=== PATIENT | female | born 1975 | race Caucasian/White ===

== ENCOUNTER 2017-10-05 19:33 | Inpatient (IN) | payer OTHER ==
[2017-10-05 20:12] LABS: Absolute Lymphocytes (CBC) 0.9 K/uL (0.7-4.9); Absolute Monocytes 0.8 K/uL (0.1-1.3); Absolute Neutrophil 13.2 K/uL (1.8-8.0); Basophils % 0.3 % (0-1.3); Eosinophils % 0.1 % (0-4.4); Hematocrit 39.8 % (36.0-45.0); Lymphocytes % 6.3 % (15.3-44.8); MCH 23.4 pg (27.0-35.0); MCV 75.2 fL (80-100); MPV 7.8 fL (7.6-11.3); Monocytes % 5.5 % (3.3-12.3); RBC Red Blood Cell Count 5.29 M/uL (3.86-4.86)
[2017-10-05] MEDS ORDERED: ACETAMINOPHEN 500 MG TAB ONE (20:13)
[2017-10-05] MEDS ORDERED: NA CHLORIDE 0.9% 2,000 ML ONE (20:13)
[2017-10-05 20:20] LABS: Potassium 3.3 mEq/L (3.6-5.0)
--- NOTE | 2017-10-05 20:21 | RAD REPORT ---
EXAM DESCRIPTION: RAD - Chest Single View - 10/05/2017 8:08 pm CLINICAL HISTORY: Chest pain. COMPARISON: None. FINDINGS: Portable technique limits examination quality. The lungs are grossly clear. The heart is normal in size. No displaced fractures. IMPRESSION: No acute intrathoracic process suspected.
[2017-10-05 20:25] LABS: Protime INR 1.39
[2017-10-05 20:26] LABS: Albumin 3.1 g/dL (3.2-5.5); Bilirubin Direct 0.5 mg/dL (0-0.2); Bilirubin Total 1.3 mg/dL (0.3-1.2); Protein, Total 7.4 g/dL (6.0-8.3)
[2017-10-05 20:29] LABS: CKMB Creatine Kinase MB 0.9 ng/ml (0.3-4.0)
[2017-10-05 21:51] LABS: Urine Bacteria LOADED /HPF (<20); Urine Culture Reflex Order REFLEXED; Urine Mucus 1+ /HPF (NONE SEEN)
[2017-10-05 21:51] LABS: Urine Blood TRACE (NEG); Urine Glucose NEGATIVE (NEG); Urine Protein 2+ (NEG)
--- NOTE | 2017-10-05 21:53 | EDPHYS ---
Physician Documentation [facility] Name: Cristy Caceres Age: 42 yrs Sex: Female : 1975 Arrival Date: 10/05/2017 Time: 19:34 Bed 2 Private MD: ED Physician Magno Randle HPI: 10/05 19:50 This 42 yrs old Female presents to ER via EMS with complaints of Fever. cp 19:50 The patient reports fever, with an emergency department temperature of 103.2 degrees cp Fahrenheit. Onset: The symptoms/episode began/occurred 3 day(s) ago. 19:50 Associated signs and symptoms: Pertinent positives: cough, Pertinent negatives: cp abdominal pain, altered mental status, chest pain, diarrhea, vomiting. 19:50 Severity of symptoms: in the emergency department the symptoms are unchanged despite cp home interventions. 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 - Social history:: Smoking status: Patient/guardian denies using tobacco. ROS: 19:55 Constitutional: Positive for fever, poor PO intake. cp 19:55 Eyes: Negative for injury, pain, redness, and discharge. cp 19:55 ENT: Negative for injury, pain, and discharge, Neck: Negative for injury, pain, and cp swelling, Cardiovascular: Negative for chest pain, palpitations, and edema. 19:55 Respiratory: Positive for cough, Negative for shortness of breath, wheezing. cp 19:55 Abdomen/GI: Negative for abdominal pain, vomiting, diarrhea, constipation, black/tarry stool, rectal bleeding. 19:55 Back: Negative for injury or acute deformity. 19:55 : Negative for urinary symptoms, pelvic pain. 19:55 MS/extremity: Negative for injury or acute deformity, decreased range of motion. 19:55 Neuro: Negative for altered mental status, headache, loss of consciousness, syncope, near syncope. 19:55 All other systems are negative. Exam: 20:05 Constitutional: The patient appears in no acute distress, alert, non-diaphoretic, cp non-toxic, well developed, well nourished, appears ill 20:05 Head/Face: Normocephalic, atraumatic. cp 20:05 Eyes: Periorbital structures: appear normal, Pupils: equal, round, and reactive to light and accomodation, Extraocular movements: intact throughout, Conjunctiva: normal, no exudate, no injection, Sclera: no appreciated abnormality, Lids and lashes: appear normal, bilaterally. 20:05 ENT: External ear(s): are unremarkable, Ear canal(s): are normal, clear, TM's: bulging, is not appreciated, bilaterally, dullness, bilaterally, erythema, is not appreciated, bilaterally, Nose: is normal, Mouth: Lips: dry, Oral mucosa: dry, Posterior pharynx: Airway: no evidence of obstruction, patent, Tonsils: are normal in appearance, Uvula: midline, swelling, is not appreciated, erythema, that is mild, exudate, is not appreciated, Voice: is normal. 20:05 Neck: ROM/movement: is normal, is supple, without pain, no range of motions limitations, no meningismus, no nuchal rigidity, Lymph nodes: no appreciated lymphadenopathy. 20:05 Chest/axilla: Inspection: normal, Palpation: is normal, no crepitus, no tenderness. 20:05 Cardiovascular: Rate: tachycardic, Rhythm: regular, Edema: is not appreciated, JVD: is not appreciated. 20:05 Respiratory: the patient does not display signs of respiratory distress, Respirations: normal, no use of accessory muscles, no retractions, no splinting, no tachypnea, labored breathing, is not present, Breath sounds: decreased breath sounds, are not appreciated, stridor, is not appreciated, wheezing: is not appreciated. 20:05 Abdomen/GI: Inspection: obese Bowel sounds: active, all quadrants, Palpation: abdomen is soft and non-tender, in all quadrants. 20:05 Back: CVA tenderness, is absent, vertebral tenderness, is not appreciated. 20:05 Skin: cellulitis, is not appreciated, no rash present. 20:05 Neuro: Orientation: to person, place \T\ time. Mentation: lucid, able to follow commands, Cerebellar function: is grossly normal, Motor: moves all fours, general weakness w/o focal deficits, Sensation: no obvious gross deficits. Vital Signs: 19:38 BP 119 / 78; Pulse 132; Resp 22; Temp 103.2(O); Pulse Ox 100% on R/A; Weight 99.79 kg; tl2 Height 5 ft. 6 in. (167.64 cm); 20:28 BP 129 / 77; Pulse 115; Resp 20; Temp 101.6(O); Pulse Ox 94% on R/A; tl2 21:21 BP 101 / 77; Pulse 102; Resp 20; Temp 99.6(O); Pulse Ox 96% on R/A; tl2 22:29 BP 105 / 75; Pulse 90; Resp 18 S; Pulse Ox 96% on R/A; jd3 23:18 BP 95 / 62; Pulse 85; Resp 18 S; Temp 98.3(O); Pulse Ox 95% on R/A; jd3 19:38 Body Mass Index 35.51 (99.79 kg, 167.64 cm) tl2 MDM: 19:35 Patient medically screened. cp 21:50 Data reviewed: vital signs, nurses notes, lab test result(s), EKG, radiologic studies, cp plain films. 10/05 19:48 Order name: Urine Microscopic Only; Complete Time: 00:52 cp 10/05 19:48 Order name: Amylase, Serum; Complete Time: 20:56 cp 10/05 19:48 Order name: Basic Metabolic Panel; Complete Time: 20:56 cp 10/05 20:56 Interpretation: Normal except: NA 134; K 3.3; CO2 20; GLUC 152; GFR 81. cp 10/05 19:48 Order name: CBC with Diff; Complete Time: 20:56 cp 10/05 20:57 Interpretation: Normal except: WBC 15.0; RBC 5.29; MCV 75.2; MCH 23.4; MCHC 31.1; RDW cp 18.1; GABRIELE% 87.8; LYM% 6.3; NEUT A 13.2. 10/05 19:48 Order name: Ckmb; Complete Time: 20:56 cp 10/05 19:48 Order name: CPK; Complete Time: 20:56 cp 10/05 19:48 Order name: Lactate; Complete Time: 20:56 cp 10/05 19:48 Order name: LFT's; Complete Time: 20:56 cp 10/05 20:58 Interpretation: Normal except: SGOT 57; BILIT 1.3; BILID 0.5; ALB 3.1; GLOB 4.3; A/G cp 0.7. 10/05 19:48 Order name: Lipase; Complete Time: 20:56 cp 10/05 19:48 Order name: Procalcitonin; Complete Time: 21:34 cp 10/05 21:34 Interpretation: Abnormal: Procalcitonin 1.76. cp 10/05 19:48 Order name: Protime (+inr); Complete Time: 20:56 cp 10/05 21:04 Interpretation: Reviewed. cp 10/05 19:48 Order name: Ptt, Activated; Complete Time: 20:56 cp 10/05 21:06 Interpretation: Abnormal: PTT 23.8. cp 10/05 19:48 Order name: Urine Test (obtain specimen); Complete Time: 21:26 cp 10/05 19:48 Order name: Troponin (emerg Dept Use Only); Complete Time: 20:56 cp 10/05 19:48 Order name: Chest Single View XRAY; Complete Time: 20:56 cp 10/05 21:35 Interpretation: Report review. cp 10/05 19:48 Order name: Influenza Screen (a \T\ B); Complete Time: 20:56 cp 10/05 19:48 Order name: BNP B-Type Natriuretic Peptide; Complete Time: 20:56 EDMS 10/05 21:47 Order name: Urine Dipstick--Ancillary (enter results) rg2 10/05 21:47 Order name: Urine --Ancillary (enter results) rg2 10/05 21:48 Order name: Urine Dipstick-Ancillary; Complete Time: 00:52 EDMS 10/05 21:48 Order name: Urine --Ancillary; Complete Time: 00:52 EDMS 10/05 21:52 Order name: Urine Culture EDMS 10/05 22:33 Order name: Blood Culture EDMS 10/05 19:48 Order name: Accucheck; Complete Time: 20:13 cp 10/05 19:48 Order name: Cardiac monitoring; Complete Time: 20:00 cp 10/05 19:48 Order name: EKG - Nurse/Tech; Complete Time: 19:50 cp 04/05 19:48 Order name: IV Saline Lock - Large Bore; Complete Time: 19:50 cp 04/05 19:48 Order name: Labs collected and sent; Complete Time: 19:50 cp 0405 19:48 Order name: O2 Per Protocol; Complete Time: 19:50 cp 04/05 19:48 Order name: O2 Sat Monitoring; Complete Time: 19:50 cp 04/05 19:48 Order name: Urine Dipstick-Ancillary (obtain specimen); Complete Time: 21:26 cp 04/05 21:10 Order name: Straight Cath - Urine; Complete Time: 21:26 jd3 Administered Medications: 20:01 Drug: Tylenol 1000 mg Route: PO; jd3 21:09 Follow up: Response: Temperature is decreased jd3 20:02 Drug: NS 0.9% (30 ml/kg) 30 ml/kg Route: IV; Rate: bolus; Site: left antecubital; tl2 23:32 Follow up: Response: No adverse reaction; IV Status: Infusion continued upon admission jd3 21:04 CANCELLED (Physician Discretion): Ibuprofen 800 mg PO once cp 21:51 Drug: Rocephin - (cefTRIAXone) 1 grams Route: IVPB; Infused Over: 30 mins; Site: left jd3 antecubital; 23:32 Follow up: Response: No adverse reaction; IV Status: Completed infusion jd3 21:51 Drug: Ibuprofen 800 mg Route: PO; jd3 23:31 Follow up: Response: Temperature is decreased; Pain is decreased jd3 Point of Care Testing: Blood Glucose: 20:15 Blood Glucose: 140 mg/dL; tl2 Ranges: Critical Glucose Levels:Adult <50 mg/dl or >400 mg/dl <40 mg/dl or >180 mg/dl Disposition: 10/05/17 21:53 Hospitalization ordered by Lui Cintron for Observation. Preliminary diagnosis are Urinary tract infection, site not specified, Other specified sepsis. - Bed requested for Telemetry/MedSurg (Inpatient). - Status is Observation. jd3 - Condition is Stable. - Problem is new. - Symptoms have improved. UTI on Admission? Yes Addendum: 10/10/2017 08:32 Co-signature as Attending Physician, Magno Randle MD. g s Signatures: Dispatcher [employer] EDMS Alaina Woodward RN RN Felzi Ricardo PA PA cp Bonita Chahal RN RN tl2 Magno Randle MD MD gs Davies, Jonathon, RN RN jd3 Corrections: (The following items were deleted from the chart) 10/05 19:49 19:48 BNP+C.LAB.BRZ ordered. EDMS EDMS 21:04 21:03 Ibuprofen 800 mg PO once ordered. cp cp
--- NOTE | 2017-10-05 21:53 | ER ---
Nurse's Notes [facility] Name: Cristy Caceres Age: 42 yrs Sex: Female : 1975 Arrival Date: 10/05/2017 Time: 19:34 Bed 2 Private MD: Diagnosis: Urinary tract infection, site not specified;Other specified sepsis Presentation: 10/05 19:35 Presenting complaint: EMS states: Pt has been c/o of feeling ill x 3 days, was tl2 diagnosed with bronchitis 2 weeks ago. Pt reports cough, fever and generalized body aches. Transition of care: patient was not received from another setting of care. Onset of symptoms was October 02, 2017. Care prior to arrival: None. 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 - Social history:: Smoking status: Patient/guardian denies using tobacco. Screenin:40 Abuse screen: Denies threats or abuse. Nutritional screening: No deficits noted. tl2 Tuberculosis screening: No symptoms or risk factors identified. Fall Risk IV access (20 points). Assessment: 19:35 General: Appears uncomfortable, Behavior is calm, cooperative, appropriate for age, jd3 Reports fever for feeling ill for. Pain: Complains of pain in generalized Quality of pain is described as aching. Neuro: Level of Consciousness is awake, alert, obeys commands, Oriented to person, place, time, situation. Cardiovascular: Heart tones S1 S2 present Capillary refill < 3 seconds Patient's skin is warm and dry. Rhythm is sinus tachycardia. Respiratory: Airway is patent Respiratory effort is even, unlabored, Respiratory pattern is regular, symmetrical, Breath sounds are clear bilaterally. GI: Abdomen is round Bowel sounds present X 4 quads. Abd is soft and non tender X 4 quads. Patient currently denies nausea, vomiting. : No signs and/or symptoms were reported regarding the genitourinary system. EENT: No signs and/or symptoms were reported regarding the EENT system. Derm: Skin is intact, Skin is dry, Skin is normal, Skin temperature is warm. Musculoskeletal: Circulation, motion, and sensation intact. Range of motion: intact in all extremities. 20:30 Reassessment: Patient appears in no apparent distress at this time. No changes from tl2 previously documented assessment. Patient and/or family updated on plan of care and expected duration. Pain level reassessed. Patient is alert, oriented x 3, equal unlabored respirations, skin warm/dry/pink. 21:30 Reassessment: Patient appears in no apparent distress at this time. Patient and/or jd3 family updated on plan of care and expected duration. Pain level reassessed. Patient is alert, oriented x 3, equal unlabored respirations, skin warm/dry/pink. Patient states feeling better. 22:30 Reassessment: Patient appears in no apparent distress at this time. Patient and/or jd3 family updated on plan of care and expected duration. Pain level reassessed. Patient is alert, oriented x 3, equal unlabored respirations, skin warm/dry/pink. 23:21 Reassessment: Patient appears in no apparent distress at this time. Patient and/or jd3 family updated on plan of care and expected duration. Pain level reassessed. Patient is alert, oriented x 3, equal unlabored respirations, skin warm/dry/pink. Vital Signs: 19:38 BP 119 / 78; Pulse 132; Resp 22; Temp 103.2(O); Pulse Ox 100% on R/A; Weight 99.79 kg; tl2 Height 5 ft. 6 in. (167.64 cm); 20:28 BP 129 / 77; Pulse 115; Resp 20; Temp 101.6(O); Pulse Ox 94% on R/A; tl2 21:21 BP 101 / 77; Pulse 102; Resp 20; Temp 99.6(O); Pulse Ox 96% on R/A; tl2 22:29 BP 105 / 75; Pulse 90; Resp 18 S; Pulse Ox 96% on R/A; jd3 23:18 BP 95 / 62; Pulse 85; Resp 18 S; Temp 98.3(O); Pulse Ox 95% on R/A; jd3 19:38 Body Mass Index 35.51 (99.79 kg, 167.64 cm) tl2 ED Course: 19:34 Patient arrived in ED. jd3 19:34 Billy Ye RN is Primary Nurse. jd3 19:35 Feliz Rueda PA is PHCP. cp 19:35 Magno Randle MD is Attending Physician. cp 19:37 Triage completed. tl2 19:38 Arm band placed on right wrist. tl2 19:40 Patient has correct armband on for positive identification. Bed in low position. Side tl2 rails up X2. 19:45 Inserted saline lock: 18 gauge in left antecubital area, using aseptic technique. Blood jd3 collected. placed by [employer]. 20:07 X-ray completed. Portable x-ray completed in exam room. Patient tolerated procedure kc2 well. 20:09 Chest Single View XRAY In Process Unspecified. EDMS 21:28 Straight cath inserted, using sterile technique, 16 Fr. Specimen obtained. jd3 21:52 Lui Cintron MD is Hospitalizing Provider. cp 23:20 No provider procedures requiring assistance completed. Patient admitted, IV remains in jd3 place. Administered Medications: 20:01 Drug: Tylenol 1000 mg Route: PO; jd3 21:09 Follow up: Response: Temperature is decreased jd3 20:02 Drug: NS 0.9% (30 ml/kg) 30 ml/kg Route: IV; Rate: bolus; Site: left antecubital; tl2 23:32 Follow up: Response: No adverse reaction; IV Status: Infusion continued upon admission jd3 21:04 CANCELLED (Physician Discretion): Ibuprofen 800 mg PO once cp 21:51 Drug: Rocephin - (cefTRIAXone) 1 grams Route: IVPB; Infused Over: 30 mins; Site: left jd3 antecubital; 23:32 Follow up: Response: No adverse reaction; IV Status: Completed infusion jd3 21:51 Drug: Ibuprofen 800 mg Route: PO; jd3 23:31 Follow up: Response: Temperature is decreased; Pain is decreased jd3 Point of Care Testing: Blood Glucose: 20:15 Blood Glucose: 140 mg/dL; tl2 Ranges: Outcome: 21:53 Decision to Hospitalize by Provider. cp 23:22 Condition: stable jd3 23:22 Instructed on the need for admit, Demonstrated understanding of instructions. 23:30 Admitted to Med/surg accompanied by tech, via stretcher, room 208, with chart, Report jd3 called to Fatou HODGE 23:39 Patient left the ED. jd3 Signatures: Dispatcher [employer] EDMS Feliz Rueda PA PA cp Carr, Kelsie kc2 Bonita Chahal RN RN tl2 Billy Ye RN RN jd3 Corrections: (The following items were deleted from the chart) 19:45 19:35 Cardiovascular: Heart tones S1 S2 present Capillary refill < 3 seconds Patient's jd3 skin is warm and dry. jd3 22:15 21:15 Reassessment: Patient appears in no apparent distress at this time. Patient jd3 and/or family updated on plan of care and expected duration. Pain level reassessed. Patient is alert, oriented x 3, equal unlabored respirations, skin warm/dry/pink. jd3 22:30 22:15 Reassessment: Patient appears in no apparent distress at this time. Patient jd3 and/or family updated on plan of care and expected duration. Pain level reassessed. Patient is alert, oriented x 3, equal unlabored respirations, skin warm/dry/pink. jd3
[2017-10-05] MEDS ORDERED: CEFTRIAXONE/SWI 1gm 1 GM/10 ML SYR ONE (22:04)
[2017-10-05] MEDS ORDERED: IBUPROFEN 400 MG TAB ONE (22:04)
[2017-10-05] MEDS ORDERED: ONDANSETRON 4 MG/2 ML VIAL IV PRN (23:27)
--- NOTE | 2017-10-05 23:39 | P.HP ---
Certification for Inpatient Patient admitted to: Inpatient With expected LOS: >2 Midnights Practitioner: I am a practitioner with admitting privileges, knowledge of patient current condition, hospital course, and medical plan of care. Services: Services provided to patient in accordance with Admission requirements found in Title 42 Section 412.3 of the Code of Federal Regulations Patient History Date of Service: 10/05/17 Reason for admission: sepsis History of Present Illness: Ms Caceres is a 42 years old woman with history of chronic back pain, S/P back surgery (no records of specific surgical procedure), neurogenic bladder requiring self-catheterization, came to ED complaining of severe weakness and fever since 3-4 days ago. She started to be lethargic, then she had fever and generalized malaise. She denied abdominal pain, nausea or vomiting, diarrhea or burning urination. She has not had cough or SOB. In ED the patient was febrile, 103.2 F, lab work remarkable for leukocytosis 15K, elevated procalcitonin with normal lactate. UA was significantly abnormal consistent with UTI. Allergies No Known Allergies Allergy (Verified 03/07/16 22:12) Home Medications: Dextroamphetamine/Amphetamine [Adderall Xr 30 mg Capsule] 30 mg PO DAILY Pregabalin [Lyrica*] 75 mg PO BID 03/07/16 Levofloxacin [Levaquin] 500 mg PO DAILY #14 tablet 03/10/16 Prednisone [Prednisone*] 40 mg PO [id number] #20 tab 03/10/16 - Past Medical/Surgical History -: RSD -: neurogenic bladder -: TUBAL LLIGATION -: BACK SX -: BREAST AUGMENTATION - Family History Family History: Reviewed- Non-Contributory - Social History Smoking Status: Never smoker Alcohol use: Yes CD- Drugs: No Caffeine use: Yes Place of Residence: Home Review of Systems 10-point ROS is otherwise unremarkable Physical Examination - Physical Exam General: In no apparent distress, Other (obtunded easy to arouse) HEENT: Atraumatic, PERRLA, Mucous membr. moist/pink, EOMI, Sclerae nonicteric Neck: Supple, 2+ carotid pulse no bruit, No LAD, Without JVD or thyroid abnormality Respiratory: Clear to auscultation bilaterally, Normal air movement Cardiovascular: Regular rate/rhythm, Normal S1 S2 Gastrointestinal: Normal bowel sounds, No tenderness Musculoskeletal: No tenderness Integumentary: No rashes Neurological: Normal speech, Normal strength at 5/5 x4 extr, Normal tone, Normal affect Lymphatics: No axilla or inguinal lymphadenopathy - Studies Laboratory Data (last 24 hrs) 10/05/17 20:04: PT 16.4 H, INR 1.39, APTT 23.8 L 10/05/17 19:45: WBC 15.0 H, Hgb 12.4, Hct 39.8, Plt Count 293 10/05/17 19:45: B-Natriuretic Peptide 89 10/05/17 19:45: Sodium 134 L, Potassium 3.3 L, BUN 9, Creatinine 0.77, Glucose 152 H, Total Bilirubin 1.3 H, AST 57 H, ALT 46, Alkaline Phosphatase 111, Amylase 34, Lipase 25 Microbiology Data (last 24 hrs): 10/05/17 20:04 Nasopharnyx Influenza Type A Antigen Screen - Final 10/05/17 20:04 Nasopharnyx Influenza Type B Antigen Screen - Final Assessment and Plan - Problems (Diagnosis) (1) Sepsis Current Visit: Yes Status: Acute Qualifiers: Sepsis type: sepsis due to unspecified organism Qualified Code(s): A41.9 - Sepsis, unspecified organism (2) UTI (urinary tract infection) Current Visit: Yes Status: Acute Qualifiers: Urinary tract infection type: catheter-associated UTI Indwelling urinary catheter type: unspecified Encounter type: initial encounter Qualified Code( s): T83.511A - Infection and inflammatory reaction due to indwelling urethral catheter, initial encounter; N39.0 - Urinary tract infection, site not specified ; N39.0 - Urinary tract infection, site not specified (3) Chronic back pain Current Visit: Yes Status: Acute Qualifiers: Back pain location: low back pain Back pain laterality: midline Sciatica presence: unspecified whether sciatica present Qualified Code(s): M54.5 - Low back pain; G89.29 - Other chronic pain; G89.29 - Other chronic pain (4) Neurogenic bladder Current Visit: Yes Status: Acute - Plan Ms Caceres will be admitted to the hospital due to sepsis secondary to UTI. She is hemodynamically stable. Will order blood cultures, urine culture, renal US, empiric treatment with IV Levaquin, IV fluids and symptomatic medication for nausea and fever. - Advance Directives Does patient have a Living Will: No Does patient have a Durable POA for Healthcare: No
[2017-10-06] MEDS: NA CHLORIDE 0.9% 1,000 ML IV SCH ×3 (00:16→19:27)
[2017-10-06] MEDS: Levofloxacin 750mg IV 750 MG/150 ML BAG IV SCH (00:26)
[2017-10-06 05:55] LABS: ALT/SGPT 37 IU/L (10-60); AST/SGOT 38 IU/L (10-42); Albumin 2.5 g/dL (3.2-5.5); Alkaline Phosphatase 87 IU/L (42-121); BUN Blood Urea Nitrogen 10 mg/dL (6-20); Bicarbonate 25 mEq/L (21-31); Bilirubin Total 0.8 mg/dL (0.3-1.2); Glomerular Filtration Rate > 90 mL/min (=/>90); Glucose Level 100 mg/dL (65-120); Potassium 3.6 mEq/L (3.6-5.0); Protein, Total 6.3 g/dL (6.0-8.3); Sodium Level 135 mEq/L (135-145)
[2017-10-06] MEDS ORDERED: POTASSIUM 25 MEQ EFFERV TAB PO ONE (06:37)
[2017-10-06] MEDS: AMPHETAMINE PO SCH ×2 (09:00→21:00)
[2017-10-06] MEDS: DEXTROAMPHETAMINE PO SCH ×2 (09:00→21:00)
[2017-10-06] MEDS: CODEINE 30MG/APAP 300MG TAB PO SCH ×2 (09:00→21:02)
--- NOTE | 2017-10-06 09:18 | EKG ---
Test Date: 2017-10-05 Test Time: 19:41:10 Directory Clerk: TERESA MEASUREMENT RESULTS: Intervals: Rate: 124 NV: 154 QRSD: 66 QT: 352 QTc: 505 Happy: P: 26 NV: 154 QRS: 77 T: 59 INTERPRETIVE STATEMENTS: Sinus tachycardia with premature atrial complexes Anteroseptal infarct, age undetermined Abnormal ECG No previous ECG available for comparison Electronically Signed On 10-06-17 09:17:59 CDT by Hayes Fernandez
--- NOTE | 2017-10-06 09:22 | RAD REPORT ---
EXAM DESCRIPTION: US - Renal Ultrasound-Complete - 10/06/2017 7:49 am CLINICAL HISTORY: Urosepsis. COMPARISON: None. FINDINGS: Both kidneys are normal in size, shape and echotexture. The right kidney measures 11.2 x 5.3 x 5.2 cm. No hydronephrosis, focal mass or perinephric fluid. The left kidney measures 10.0 x 5.8 x 4.9 cm. No hydronephrosis, focal mass or perinephric fluid. IMPRESSION: Unremarkable renal sonogram.
[2017-10-06] MEDS: PREGABALIN 50 MG CAP PO SCH ×2 (09:29→21:03)
[2017-10-06] MEDS: ENOXAPARIN 40 MG/0.4 ML SQ SCH (09:30)
--- NOTE | 2017-10-06 14:49 | PN ---
Date of Progress Note: 10/06/2017 History: The patient seen and examined. Chart reviewed, and case discussed with RN. The patient is a 42-year-old female who comes in with urinary tract infection with sepsis. The patient states that she is feeling better, however, still kind of lethargic. Does report some flank pain. Review of Systems: Negative except as above. Medications: Reviewed. Physical Examination: Vital Signs: Temperature 97.1, heart rate 70, blood pressure 101/64, respirations 17, O2 saturation 97% on room air. General: Awake, alert, oriented x3, in some mild distress. Obese female. BMI 37.5. CV: S1, S2. No murmurs. Regular rate and rhythm. Peripheral pulses present. Respiratory: Clear to auscultation bilaterally. No wheezing. No stridor. No use of accessory muscles. Gastrointestinal: Abdomen is soft, nontender, nondistended. The patient does have some left flank pain. Extremities: No clubbing, cyanosis, edema. Neurologic: Nonfocal. Laboratory Data: Urine culture showing 4+ gram-negative rods. Sodium 135, potassium 3.6, chloride 104, CO2 25, BUN 10, creatinine 0.7, glucose 100, calcium 7.8. Lactate was 15.4, albumin 2.5, procalcitonin 1.76. Assessment: A 42-year-old female with Sepsis secondary to urinary tract infection. No further fevers. We will continue antibiotics. Follow up with cultures. 1. Generalized weakness secondary to above. 2. pyelonephritis secondary to gram-negative rods. We will continue IV antibiotics. The patient does have flank pain. Right renal ultrasound was unremarkable and followup on ID and sensitivity. 3. Chronic back pain, midline, without sciatica. 4. Neurogenic bladder. The patient does do self-catheterization. Plan: We will continue antibiotics. Follow up on cultures. Ambulate. SA/MODL Voice ID: [id number] Report ID: [id number] MTDD
[2017-10-06] MEDS: ACETAMINOPHEN 500 MG TAB PO PRN (16:47)
[2017-10-07] MEDS: Levofloxacin 750mg IV 750 MG/150 ML BAG IV SCH ×2 (00:04→22:42)
[2017-10-07] MEDS: NA CHLORIDE 0.9% 1,000 ML IV SCH ×3 (00:04→20:16)
[2017-10-07] MEDS: ACETAMINOPHEN 500 MG TAB PO PRN (03:32)
[2017-10-07 05:14] LABS: Absolute Lymphocytes (CBC) 1.6 K/uL (0.7-4.9); Absolute Monocytes 0.8 K/uL (0.1-1.3); Absolute Neutrophil 3.1 K/uL (1.8-8.0); Basophils % 0.8 % (0-1.3); Eosinophils % 2.1 % (0-4.4); Hematocrit 32.5 % (36.0-45.0); Lymphocytes % 27.7 % (15.3-44.8); MCH 23.7 pg (27.0-35.0); MCV 75.3 fL (80-100); MPV 7.9 fL (7.6-11.3); Monocytes % 14.3 % (3.3-12.3); RBC Red Blood Cell Count 4.31 M/uL (3.86-4.86)
[2017-10-07 05:54] LABS: BUN Blood Urea Nitrogen 10 mg/dL (6-20); Bicarbonate 26 mEq/L (21-31); Glomerular Filtration Rate > 90 mL/min (=/>90); Glucose Level 97 mg/dL (65-120); Magnesium 1.9 mg/dL (1.8-2.5); Potassium 3.5 mEq/L (3.6-5.0); Sodium Level 138 mEq/L (135-145)
[2017-10-07] MEDS: DEXTROAMPHETAMINE PO SCH ×2 (09:00→20:19)
[2017-10-07] MEDS: AMPHETAMINE PO SCH ×2 (09:00→20:19)
[2017-10-07] MEDS ORDERED: POTASSIUM 25 MEQ EFFERV TAB PO ONE (09:00)
[2017-10-07] MEDS: PREGABALIN 50 MG CAP PO SCH ×2 (10:09→20:19)
[2017-10-07] MEDS: ENOXAPARIN 40 MG/0.4 ML SQ SCH (10:10)
[2017-10-07] MEDS: CODEINE 30MG/APAP 300MG TAB PO SCH ×2 (10:10→20:18)
--- NOTE | 2017-10-07 15:19 | PN ---
Date of Progress Note: 10/07/2017 Subjective: The patient is seen and examined, chart reviewed, and case discussed with RN. The patient states that she feels better, however, still sleepy. Pain is significantly improved. Review of Systems: Negative except as above. Medications: Reviewed. Physical Examination: Vital Signs: Temperature 98.2, heart rate 80, blood pressure 128/77, respirations 18, O2 96% on room air. General: Awake, alert, oriented x3, in some mild distress. Somewhat ill- appearing female. BMI 37.5. CVS: S1, S2. No murmurs. Regular rate and rhythm. Peripheral pulses present. Respiratory: Moving air well bilaterally. No wheezing. Abdomen: Abdomen is soft, nontender, nondistended. Positive bowel sounds and slight flank pain on the left. Extremities: No clubbing, cyanosis, edema. Neurologic: Nonfocal. Laboratory Data: Sodium 138, potassium 3.5, chloride 107, CO2 26, BUN 10, creatinine 0.64, glucose 97, calcium 8, magnesium 1.9. WBC 5.7, H and H 10.2, 32.5, platelets 271, neutrophils 55%. Urine culture shows Escherichia coli. Essentially pansensitive. Blood cultures; no growth to date. Assessment And Plan: A 42-year-old female with: 1. Sepsis secondary to pyelonephritis, improved. The patient is afebrile. White count normalized secondary to urinary tract infection with Escherichia coli. 2. Pyelonephritis secondary to Escherichia coli. We will continue IV antibiotics, sensitivities noted, improving. 3. Generalized weakness secondary to above. We will ambulate the patient today. 4. Chronic back pain, midline without sciatica. 5. Neurogenic bladder. Patient is self cath'ed. Plan: Ambulate. Recheck blood count in a.m. Likely discharge in next 24-48 hours if continues to improve. Continue IV fluids. /TATIANA Voice ID: [id number] Report ID: [id number] LOLA
[2017-10-08] MEDS: NA CHLORIDE 0.9% 1,000 ML IV SCH (01:27)
[2017-10-08 05:15] LABS: Absolute Lymphocytes (CBC) 1.9 K/uL (0.7-4.9); Absolute Monocytes 0.8 K/uL (0.1-1.3); Absolute Neutrophil 2.4 K/uL (1.8-8.0); Basophils % 0.8 % (0-1.3); Eosinophils % 1.8 % (0-4.4); Hematocrit 32.1 % (36.0-45.0); Lymphocytes % 35.9 % (15.3-44.8); MCH 23.9 pg (27.0-35.0); MCV 74.9 fL (80-100); MPV 7.5 fL (7.6-11.3); Monocytes % 14.9 % (3.3-12.3); RBC Red Blood Cell Count 4.29 M/uL (3.86-4.86)
[2017-10-08 05:27] LABS: BUN Blood Urea Nitrogen 6 mg/dL (6-20); Bicarbonate 26 mEq/L (21-31); Glomerular Filtration Rate > 90 mL/min (=/>90); Glucose Level 98 mg/dL (65-120); Potassium 3.7 mEq/L (3.6-5.0); Sodium Level 140 mEq/L (135-145)
[2017-10-08] MEDS ORDERED: POTASSIUM CL SA 10 MEQ TAB PO ONE (06:36)
[2017-10-08] MEDS: ENOXAPARIN 40 MG/0.4 ML SQ SCH (09:00)
[2017-10-08] MEDS: CODEINE 30MG/APAP 300MG TAB PO SCH (09:00)
[2017-10-08] MEDS: PREGABALIN 50 MG CAP PO SCH (09:00)
[2017-10-08] MEDS: AMPHETAMINE PO SCH (09:00)
[2017-10-08] MEDS: DEXTROAMPHETAMINE PO SCH (09:00)
--- NOTE | 2017-10-09 04:04 | DS ---
Date of Discharge: 10/08/2017 Admitting Diagnoses: 1.Sepsis. 2.Pyelonephritis. 3.Chronic back pain. 4.Neurogenic bladder. Discharge Diagnoses: 1.Sepsis, resolved. 2.Pyelonephritis secondary to Escherichia coli. 3.Generalized weakness, improved. 4.Chronic back pain, midline without sciatica. 5.Neurogenic bladder. Hospital Course: The patient is a 42-year-old female who comes into the hospital for UTI symptoms. Her white count was elevated. She was found to have pyelonephritis. She was started on IV antibioti cs and her urine culture showed E. coli, which was essentially pansensitive. Renal ultrasound was do ne, which showed unremarkable renal sonogram. The patient's sepsis improved. Her white count normal ized. Her procalcitonin trended down. The patient was able to ambulate, was doing well, had no furt her pain and her sepsis had resolved. The patient was then discharged home in a stable condition. Activity: As tolerated. Medications: As per medication reconciliation list. Diet: Calorie restricted diet. Followup: Follow up with primary care physician 2 days. Return to ER for worsening condition. Physical Examination: General: Awake, alert, oriented, no acute distress. CV: S1, S2. No murmurs. Respiratory: Moving air well bilaterally. Abdomen: Soft, nontender, nondistended. Positive bowel sounds. Extremities: No clubbing, cyanosis, or edema. Neurologic: Nonfocal. Time Spent: Total time spent discharging the patient was 35 minutes. PEG Voice ID: [id number] Report ID: [id number]
== END 2017-10-08 11:10 | disposition home or self-care (01) | DRG 698 ==
LOC: ER 19:33 → ERHOLD 22:07 → 2ND 23:20
PROVIDERS: ADMIT Internal Medicine; ATTEND Family Medicine
DX: T83.511A Infection and inflammatory reaction due to indwelling urethral catheter, initial encounter (principal); A41.9 Sepsis, unspecified organism; N10 Acute pyelonephritis; G90.50 Complex regional pain syndrome I, unspecified; B96.20 Unspecified Escherichia coli [E. coli] as the cause of diseases classified elsewhere; M54.9 Dorsalgia, unspecified; N31.9 Neuromuscular dysfunction of bladder, unspecified
CPT/HCPCS: 36415; 51702; 71045; 76770; 80048; 80053; 80076; 81003; 81015; 81025; 82150; 82550; 82553; 82962; 83605; 83690; 83735; 83880; 84145; 84484; 85025; 85610; 85730; 87040; 87077; 87086; 87088; 87186; 87804; 93005; 96365; 96366; 99285; J0696; J1650; J7030

== ENCOUNTER 2019-09-19 13:33 | Emergency (ER) | payer OTHER ==
[2019-09-19 15:01] LABS: Urine Blood 1+ (NEG); Urine Glucose NEGATIVE (NEG); Urine Protein 1+ (NEG); Urine pH 8.5 (5.0-7.0)
[2019-09-19 15:01] LABS: Urine Bacteria <20 /HPF (<20); Urine Mucus 2+ /HPF (NONE SEEN)
--- NOTE | 2019-09-19 15:54 | RAD REPORT ---
EXAM DESCRIPTION: CT - Stone Protocol - 09/19/2019 3:40 pm CLINICAL HISTORY: Flank pain. FLANK PAIN COMPARISON: No comparisons TECHNIQUE: Axial images were obtained without oral or IV contrast. Lack of contrast limits solid org an and vascular assessment. The [id number] spans the entirety of the system partially obscuring uppermost abdomen and lung bases. Coronal reformatted images were obtained and reviewed. All CT scans are performed using dose optimization technique as appropriate and may include automated exposure control or mA/KV adjustment according to patient size. FINDINGS: The lower lung welch are clear. Imaged portions of the liver and spleen show no suspicious findings on non-contrast imaging. The panc reas and adrenal glands are normal. No pathologic lymphadenopathy in the abdomen or pelvis. A 2 mm calculus is present in the proximal left ureter resulting in mild left hydronephrosis. No margareth tional stone or hydronephrosis seen. No bowel obstruction, free air, free fluid or abscess. Normal appendix noted. No significant bony abnormality. IMPRESSION: 2 mm calculus proximal left ureter resulting in mild left hydronephrosis.
--- NOTE | 2019-09-19 16:15 | EDPHYS ---
Physician Documentation [facility] Name: Cristy Caceres Age: 43 yrs Sex: Female : 1975 Arrival Date: 09/19/2019 Time: 13:48 Bed 17 Private MD: Adan Smith E ED Physician Rolando Singh HPI: 09/18 16:55 This 43 yrs old Female presents to ER via Ambulatory with complaints of Flank kb Pain. 16:55 The patient complains of pain in the left flank. The pain does not radiate. Modifying kb factors: The symptoms are alleviated by nothing. the symptoms are aggravated by palpation/percussion. The patient has not recently seen a physician. 16:55 Onset: The symptoms/episode began/occurred 2 day(s) ago. Associated signs and symptoms: kb Pertinent positives: fever, Pertinent negatives: diarrhea, dizziness, dysuria, urinary frequency, headache, hematuria, nausea, pain radiating to the lower extremities, vomiting. Severity of pain: At its worst the pain was moderate in the emergency department the pain is unchanged. The patient has not experienced similar symptoms in the past. Pt reports left flank pain. No urinary symptoms, but pt has cauda equina syndrome so has "no feeling down there". 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 - Social history:: Smoking status: Patient/guardian denies using. ROS: 16:53 Constitutional: Negative for fever, chills, and weight loss, ENT: Negative for injury, kb pain, and discharge, Neck: Negative for injury, pain, and swelling, Cardiovascular: Negative for chest pain, palpitations, and edema, Respiratory: Negative for shortness of breath, cough, wheezing, and pleuritic chest pain, Abdomen/GI: Negative for abdominal pain, nausea, vomiting, diarrhea, and constipation, MS/Extremity: Negative for injury and deformity, Skin: Negative for injury, rash, and discoloration, Neuro: Negative for headache, weakness, numbness, tingling, and seizure. 16:53 : Positive for flank pain. Exam: 16:52 Constitutional: This is a well developed, well nourished patient who is awake, alert, kb and in no acute distress. Head/Face: Normocephalic, atraumatic. Neck: Trachea midline, no thyromegaly or masses palpated, and no cervical lymphadenopathy. Supple, full range of motion without nuchal rigidity, or vertebral point tenderness. No Meningismus. Chest/axilla: Normal chest wall appearance and motion. Nontender with no deformity. No lesions are appreciated. Cardiovascular: Regular rate and rhythm with a normal S1 and S2. No gallops, murmurs, or rubs. Normal PMI, no JVD. No pulse deficits. Respiratory: Lungs have equal breath sounds bilaterally, clear to auscultation and percussion. No rales, rhonchi or wheezes noted. No increased work of breathing, no retractions or nasal flaring. Abdomen/GI: Soft, non-tender, with normal bowel sounds. No distension or tympany. No guarding or rebound. No evidence of tenderness throughout. Skin: Warm, dry with normal turgor. Normal color with no rashes, no lesions, and no evidence of cellulitis. MS/ Extremity: Pulses equal, no cyanosis. Neurovascular intact. Full, normal range of motion. Neuro: Awake and alert, GCS 15, oriented to person, place, time, and situation. Cranial nerves II-XII grossly intact. Motor strength 5/5 in all extremities. Sensory grossly intact. Cerebellar exam normal. Normal gait. 16:52 Back: pain, that is moderate, of the left flank, ROM is normal, normal spinal alignment noted, CVA tenderness, that is moderate, is noted on the left. Vital Signs: 13:59 BP 151 / 85; Pulse 113; Resp 20; Temp 100.1; Pulse Ox 98% ; Pain 10/10; ll1 16:00 BP 134 / 78; Pulse 98; Resp 18; Temp 99.4; Pulse Ox 95% on R/A; wh MDM: 14:02 Patient medically screened. kb 15:13 Data reviewed: vital signs, nurses notes. Data interpreted: Pulse oximetry: on room air kb is 98 %. Interpretation: normal. Counseling: I had a detailed discussion with the patient and/or guardian regarding: the historical points, exam findings, and any diagnostic results supporting the discharge/admit diagnosis, lab results, the need for outpatient follow up, a family practitioner, to return to the emergency department if symptoms worsen or persist or if there are any questions or concerns that arise at home. 09/18 14:43 Order name: Urine Microscopic Only; Complete Time: 15:13 dh3 09/18 14:43 Order name: Urine Culture [facility] 09/18 14:54 Order name: Urine Dipstick--Ancillary (enter results); Complete Time: 15:13 em1 09/18 14:54 Order name: Urine --Ancillary (enter results); Complete Time: 15:13 em1 09/18 15:13 Order name: CT Stone Protocol; Complete Time: 16:04 kb 09/18 14:00 Order name: Urine Dipstick-Ancillary (obtain specimen); Complete Time: 14:39 wh 09/18 14:00 Order name: Urine Test (obtain specimen); Complete Time: 14:38 wh Administered Medications: 16:13 CANCELLED (Physician Discretion): Ibuprofen 600 mg PO once kb 16:14 CANCELLED (Physician Discretion): TORadol - Ketorolac 15 mg IVP once kb 16:34 Drug: Macrobid 100 mg Route: PO; 16:41 Follow up: Response: No adverse reaction 16:34 Drug: Flomax 0.4 mg Route: PO; 16:41 Follow up: Response: No adverse reaction 16:34 Drug: Tylenol 1000 mg Route: PO; 16:41 Follow up: Response: No adverse reaction Disposition: 18:35 Co-signature as Attending Physician, Rolando Singh MD Signature for administrative ps1 purposes. Did not see or evaluate patient. . Disposition: 09/19/19 16:14 Discharged to Home. Impression: Calculus of ureter. - Condition is Stable. - Discharge Instructions: Kidney Stones, [id number]. - Prescriptions for Zofran 4 mg Oral Tablet - take 1 tablet by ORAL route every 12 hours As needed; 20 tablet. Macrobid 100 mg Oral Capsule - take 1 capsule by ORAL route every 12 hours for 10 days; 20 capsule. Flomax 0.4 mg Oral Capsule, Sust. Release 24 hr - take 1 capsule by ORAL route once daily 1/2 hour following the same meal each day; 10 capsule. Diclofenac Sodium 75 mg Oral Tablet, Delayed Release (E.C.) - take 1 tablet by ORAL route 2 times per day As needed; 30 tablet. - Medication Reconciliation Form, Thank You Letter, Antibiotic Education, Prescription Opioid Use form. - Follow up: Emergency Department; When: As needed; Reason: Worsening of condition. Follow up: Private Physician; When: 2 - 3 days; Reason: Recheck today's complaints, Continuance of care, Re-evaluation by your physician. Signatures: Dispatcher [employer] EDLaya Hand, JONES MCDONALD-Jeny Thomas Phillip, MD MD ps1 Corrections: (The following items were deleted from the chart) 16:13 16:13 Ibuprofen 600 mg PO once ordered. kb kb 16:14 16:13 TORadol - Ketorolac 15 mg IVP once ordered. kb kb 17:17 16:14 09/19/2019 16:14 Discharged to Home. Impression: Calculus of ureter. Condition is wh Stable. Forms are Medication Reconciliation Form, Thank You Letter, Antibiotic Education, Prescription Opioid Use. Follow up: Emergency Department; When: As needed; Reason: Worsening of condition. Follow up: Private Physician; When: 2 - 3 days; Reason: Recheck today's complaints, Continuance of care, Re-evaluation by your physician. kb
--- NOTE | 2019-09-19 16:15 | ER ---
Nurse's Notes [facility] Name: Cristy Caceres Age: 43 yrs Sex: Female : 1975 Arrival Date: 09/19/2019 Time: 13:48 Bed 17 Private MD: Adan Smith E Diagnosis: Calculus of ureter Presentation: 09/18 13:59 Chief complaint: Patient states: Severe left flank pain for 2 days. + fever. Sent MD. ll1 Coronavirus screen: The patient has NOT traveled to a country currently being monitored by the [facility] within the last 14 days. Ebola Screen: Patient denies travel to an Ebola-affected area in the 21 days before illness onset. Initial Sepsis Screen: Does the patient meet any 2 criteria? Systolic BP < 90 mmHg. Risk Assessment: Do you want to hurt yourself or someone else? Patient reports no desire to harm self or others. 13:59 Method Of Arrival: Ambulatory 1 13:59 Acuity: TWIN 3 1 14:10 Onset of symptoms was September 19, 2019. 14:10 Initial Sepsis Screen: Does the patient have a suspected source of infection? Yes: Dysuria/Frequency/Urgency/UTI. 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 - Social history:: Smoking status: Patient/guardian denies using. Screenin:15 Abuse screen: Denies threats or abuse. Denies injuries from another. Nutritional screening: No deficits noted. Tuberculosis screening: No symptoms or risk factors identified. Fall Risk None identified. Assessment: 14:15 General: Appears in no apparent distress. Behavior is calm, cooperative, appropriate wh for age. Pain: Complains of pain in back Pain does not radiate. Pain currently is 3 out of 10 on a pain scale. Is intermittent. Neuro: Level of Consciousness is awake, alert, obeys commands, Oriented to person, place, time, situation, Appropriate for age. Cardiovascular: Heart tones S1 S2. Respiratory: Airway is patent Respiratory effort is even, unlabored, Respiratory pattern is regular, symmetrical, Breath sounds are clear bilaterally. GI: Abdomen is flat, non-distended, Abd is soft and non tender X 4 quads. : Reports incontinence, Hx of Cauda Equina. EENT: No signs and/or symptoms were reported regarding the EENT system. Derm: Skin is intact, is healthy with good turgor, Skin is pink, warm \T\ dry. normal. Musculoskeletal: Circulation, motion, and sensation intact. 15:25 Reassessment: Patient appears in no apparent distress at this time. No changes from previously documented assessment. Patient and/or family updated on plan of care and expected duration. Pain level reassessed. Patient is alert, oriented x 3, equal unlabored respirations, skin warm/dry/pink. 16:37 Reassessment: Patient appears in no apparent distress at this time. No changes from previously documented assessment. Patient and/or family updated on plan of care and expected duration. Pain level reassessed. Patient is alert, oriented x 3, equal unlabored respirations, skin warm/dry/pink. 16:45 Reassessment: Pt with low grade fever and chills just waiting for ride home. Vital Signs: 13:59 BP 151 / 85; Pulse 113; Resp 20; Temp 100.1; Pulse Ox 98% ; Pain 10/10; ll1 16:00 BP 134 / 78; Pulse 98; Resp 18; Temp 99.4; Pulse Ox 95% on R/A; ED Course: 13:48 Patient arrived in ED. mr 13:48 Adan Smith MD is Private Physician. mr 13:56 Jeff Abarca, AYESHA is Primary Nurse. em 14:00 Triage completed. ll1 14:01 Laya Mcneill FNP-C [facility]. kb 14:01 Rolando Singh MD is Attending Physician. kb 14:01 Arm band placed on Patient placed in an exam room. ll1 14:10 Patient has correct armband on for positive identification. Placed in gown. Bed in low wh position. Call light in reach. Side rails up X 1. Pulse ox on. NIBP on. 14:43 Straight cath inserted, using sterile technique, Returned cloudy urine. Patient dh3 tolerated well. 15Fr , returned approximately 80mL. 15:41 CT Stone Protocol In Process Unspecified. EDMS 16:38 No provider procedures requiring assistance completed. Patient did not have IV access wh during this emergency room visit. Administered Medications: 16:13 CANCELLED (Physician Discretion): Ibuprofen 600 mg PO once 16:14 CANCELLED (Physician Discretion): TORadol - Ketorolac 15 mg IVP once 16:34 Drug: Macrobid 100 mg Route: PO; 16:41 Follow up: Response: No adverse reaction 16:34 Drug: Flomax 0.4 mg Route: PO; 16:41 Follow up: Response: No adverse reaction 16:34 Drug: Tylenol 1000 mg Route: PO; 16:41 Follow up: Response: No adverse reaction Outcome: 16:14 Discharge ordered by MD. 16:38 Discharged to home ambulatory. 16:38 Condition: stable 16:38 Discharge instructions given to patient, Instructed on discharge instructions, follow up and referral plans. medication usage, POC Demonstrated understanding of instructions, follow-up care, medications, POC Prescriptions given X 4. 17:17 Patient left the ED. Signatures: Dispatcher [employer] EDLaya Hand, CRIME INVESTIGATOR SPECIAL AGENT-C CRIME INVESTIGATOR SPECIAL AGENT-Eliza Antony Edgar, RN RN Mary Guzman 3 Jeny Escobar Zeeshan Woodward RN RN ll1 Corrections: (The following items were deleted from the chart) 16:44 16:00 BP 134 / 78; Pulse 98bpm; Resp 18bpm; Pulse Ox 95% RA; [facility]
[2019-09-19] MEDS ORDERED: ACETAMINOPHEN 500 MG TAB ONE (16:32)
[2019-09-19] MEDS ORDERED: NITROFURAN MACRO 100 MG CAP PO ONE (16:32)
[2019-09-19] MEDS ORDERED: TAMSULOSIN 0.4 MG SR CAP ONE (16:32)
== END 2019-09-19 17:17 | disposition home or self-care (01) ==
LOC: ER 13:33
DX: N20.1 Calculus of ureter (principal)
CPT/HCPCS: 51702; 74176; 76377; 81003; 81015; 81025; 87086; 87088; 99284

== ENCOUNTER 2020-10-25 02:31 | Emergency (ER) | payer OTHER ==
[2020-10-25] MEDS ORDERED: MORPHINE 4 MG/ML SYR ONE (04:54)
--- NOTE | 2020-10-25 06:37 | EDPHYS ---
Physician Documentation [facility] Name: Cristy Caceres Age: 45 yrs Sex: Female : 1975 Arrival Date: 10/25/2020 Time: 02:34 Bed 8 Private MD: ED Physician Bladimir Mustafa HPI: 10/25 04:48 This 45 yrs old Female presents to ER via EMS with complaints of Back Pain. mh7 04:48 The patient presents with pain and an injury. The symptoms are located in the lumbar mh7 area. 04:48 Onset: The symptoms/episode began/occurred today. The pain does not radiate. mh7 04:49 Associated signs and symptoms: Pertinent negatives: abdominal pain, chest pain, mh7 constipation, dysuria, fever, headache, hematuria, incontinence, nausea, numbness, tingling, urinary retention, vomiting, weakness. The problem was sustained during a fall, while walking. Modifying factors: The patient symptoms are alleviated by nothing, the patient symptoms are aggravated by movement. Severity of symptoms: At their worst the symptoms were moderate, earlier today, in the emergency department the symptoms are unchanged. 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 - Social history:: Smoking status: Patient denies any tobacco usage or history of. ROS: 04:49 Constitutional: Negative for fever, chills, and weight loss, Eyes: Negative for injury, mh7 pain, redness, and discharge, ENT: Negative for injury, pain, and discharge, Neck: Negative for injury, pain, and swelling, Cardiovascular: Negative for chest pain, palpitations, and edema, Respiratory: Negative for shortness of breath, cough, wheezing, and pleuritic chest pain, Abdomen/GI: Negative for abdominal pain, nausea, vomiting, diarrhea, and constipation, : Negative for injury, bleeding, discharge, and swelling, MS/Extremity: Negative for injury and deformity, Skin: Negative for injury, rash, and discoloration, Neuro: Negative for headache, weakness, numbness, tingling, and seizure, Psych: Negative for depression, anxiety, suicide ideation, homicidal ideation, and hallucinations, Allergy/Immunology: Negative for hives, rash, and allergies, Endocrine: Negative for neck swelling, polydipsia, polyuria, polyphagia, and marked weight changes, Hematologic/Lymphatic: Negative for swollen nodes, abnormal bleeding, and unusual bruising. Exam: 04:49 Constitutional: This is a well developed, well nourished patient who is awake, alert, mh7 and in no acute distress. Head/Face: Normocephalic, atraumatic. Eyes: Pupils equal round and reactive to light, extra-ocular motions intact. Lids and lashes normal. Conjunctiva and sclera are non-icteric and not injected. Cornea within normal limits. Periorbital areas with no swelling, redness, or edema. Neck: Trachea midline, no thyromegaly or masses palpated, and no cervical lymphadenopathy. Supple, full range of motion without nuchal rigidity, or vertebral point tenderness. No Meningismus. Chest/axilla: Normal chest wall appearance and motion. Nontender with no deformity. No lesions are appreciated. Cardiovascular: Regular rate and rhythm with a normal S1 and S2. No gallops, murmurs, or rubs. Normal PMI, no JVD. No pulse deficits. Respiratory: Lungs have equal breath sounds bilaterally, clear to auscultation and percussion. No rales, rhonchi or wheezes noted. No increased work of breathing, no retractions or nasal flaring. Abdomen/GI: Soft, non-tender, with normal bowel sounds. No distension or tympany. No guarding or rebound. No evidence of tenderness throughout. 04:49 Skin: Warm, dry with normal turgor. Normal color with no rashes, no lesions, and no evidence of cellulitis. MS/ Extremity: Pulses equal, no cyanosis. Neurovascular intact. Full, normal range of motion. Neuro: Awake and alert, GCS 15, oriented to person, place, time, and situation. Cranial nerves II-XII grossly intact. Motor strength 5/5 in all extremities. Sensory grossly intact. Cerebellar exam normal. Normal gait. Psych: Awake, alert, with orientation to person, place and time. Behavior, mood, and affect are within normal limits. 04:49 Back: pain, that is moderate, of the lumbar area, ROM is painful, with all movement, normal spinal alignment noted, CVA tenderness, is absent, vertebral tenderness, is appreciated at lumbar area, muscle spasm, is not present, Straight leg raises: of both lower extremities does not illicit pain. Vital Signs: 02:35 BP 179 / 109; Pulse 90; Resp 17; Temp 98; Pulse Ox 100% on R/A; mg2 06:30 BP 162 / 95; Pulse 88; Resp 18; Pulse Ox 99% on R/A; MDM: 06:33 Differential diagnosis: chronic back pain, Fracture Osteoarthritis vertebral fracture, mh7 Back Contusion. Data reviewed: vital signs, nurses notes, old medical records, radiologic studies, CT scan. Data interpreted: Pulse oximetry: on room air is 100 %. Interpretation: normal. Counseling: I had a detailed discussion with the patient and/or guardian regarding: the historical points, exam findings, and any diagnostic results supporting the discharge/admit diagnosis, the presence of at least one elevated blood pressure reading (>120/80) during this emergency department visit, radiology results, the need for outpatient follow up, to return to the emergency department if symptoms worsen or persist or if there are any questions or concerns that arise at home. Response to treatment: the patient's symptoms have markedly improved after treatment. 06:36 Patient medically screened. [facility] 10/25 04:35 Order name: CT Lumbar Spine Wo Con 7 Administered Medications: 04:38 Drug: morphine 4 mg Route: IM; Site: left deltoid; mg2 06:59 Follow up: Response: No adverse reaction; Pain is decreased; RASS: Alert and Calm (0) Disposition: 10/25/20 06:36 Discharged to Home. Impression: Fall, Mechanical, Lower Back Contusion. - Condition is Stable. - Discharge Instructions: Contusion, Mazw-cw-Igbl, Back Pain, Adult, Jeci-pj-Hxbf, Fall Prevention in the Home, Kwih-hg-Myye. - Prescriptions for ketorolac 10 mg Oral tablet - take 1 tablet by ORAL route every 6 hours As needed not to exceed 40 mg in 24hrs; 12 tablet. - Work release form, Medication Reconciliation Form, Thank You Letter, Antibiotic Education, Prescription Opioid Use form. - Follow up: Private Physician; When: 1 - 2 days; Reason: Worsening of condition, Recheck today's complaints, Continuance of care, Re-evaluation by your physician. - Problem is new. - Symptoms have improved. Signatures: Dispatcher [employer] EDMS Jeny Escobar RN RN Blaze Villarreal RN RN [facility] Bladimir Mustafa MD MD mh7 Corrections: (The following items were deleted from the chart) 06:59 06:36 10/25/2020 06:36 Discharged to Home. Impression: Fall, Mechanical; Lower Back wh Contusion. Condition is Stable. Forms are Medication Reconciliation Form, Thank You Letter, Antibiotic Education, Prescription Opioid Use. Follow up: Private Physician; When: 1 - 2 days; Reason: Worsening of condition, Recheck today's complaints, Continuance of care, Re-evaluation by your physician. Problem is new. Symptoms have improved. mh7
--- NOTE | 2020-10-25 06:37 | ER ---
Nurse's Notes [facility] [place] [place] Name: Cristy Caceres Age: 45 yrs Sex: Female : 1975 Arrival Date: 10/25/2020 Time: 02:34 Bed 8 Private MD: Diagnosis: Fall, Mechanical;Lower Back Contusion Presentation: 10/25 02:35 Chief complaint: EMS states: she slipped and fell on floor, landed on her butt tonight. mg2 Coronavirus screen: Client denies travel out of the [place] in the last 14 days. At this time, the client does not indicate any symptoms associated with coronavirus-19. Ebola Screen: No symptoms or risks identified at this time. Initial Sepsis Screen: Does the patient meet any 2 criteria? No. Patient's initial sepsis screen is negative. Does the patient have a suspected source of infection? No. Patient's initial sepsis screen is negative. Risk Assessment: Do you want to hurt yourself or someone else? Patient reports no desire to harm self or others. Onset of symptoms was October 25, 2020. 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 - Social history:: Smoking status: Patient denies any tobacco usage or history of. Screenin:21 Abuse screen: Denies threats or abuse. Denies injuries from another. Nutritional mg2 screening: No deficits noted. Tuberculosis screening: No symptoms or risk factors identified. Fall Risk Fall in past 12 months (25 points). Assessment: 02:36 General: Behavior is crying. mg2 04:22 General: Appears in no apparent distress. comfortable. Pain: Complains of pain in back. mg2 Neuro: Level of Consciousness is awake, alert, obeys commands, Oriented to person, place, time, situation. Cardiovascular: Capillary refill < 3 seconds Patient's skin is warm and dry. Respiratory: Airway is patent Respiratory effort is even, unlabored, Respiratory pattern is regular, symmetrical. GI: No signs and/or symptoms were reported involving the gastrointestinal system. : No signs and/or symptoms were reported regarding the genitourinary system. EENT: No signs and/or symptoms were reported regarding the EENT system. Derm: Skin is intact, is healthy with good turgor, Skin is pink, warm \T\ dry. normal. Musculoskeletal: Circulation, motion, and sensation intact. Capillary refill < 3 seconds, Reports pain in back. 06:30 Reassessment: Patient appears in no apparent distress at this time. Patient and/or family updated on plan of care and expected duration. Pain level reassessed. Patient is alert, oriented x 3, equal unlabored respirations, skin warm/dry/pink. Vital Signs: 02:35 BP 179 / 109; Pulse 90; Resp 17; Temp 98; Pulse Ox 100% on R/A; mg2 06:30 BP 162 / 95; Pulse 88; Resp 18; Pulse Ox 99% on R/A; ED Course: 02:34 Patient arrived in ED. ag3 02:36 Triage completed. mg2 02:37 Arm band placed on. mg2 04:21 Blaze Villarreal RN is Primary Nurse. mg2 04:22 Bladimir Mustafa MD is Attending Physician. mh7 04:22 Patient has correct armband on for positive identification. Pulse ox on. NIBP on. Door mg2 closed. Warm blanket given. 04:22 No provider procedures requiring assistance completed. Patient did not have IV access mg2 during this emergency room visit. 05:16 CT Lumbar Spine Wo Con In Process Unspecified. EDMS Administered Medications: 04:38 Drug: morphine 4 mg Route: IM; Site: left deltoid; mg2 06:59 Follow up: Response: No adverse reaction; Pain is decreased; RASS: Alert and Calm (0) Outcome: 06:36 Discharge ordered by . mh7 06:58 Discharged to home via wheelchair. 06:58 Condition: stable 06:58 Discharge instructions given to patient, Instructed on discharge instructions, follow up and referral plans. medication usage, POC Demonstrated understanding of instructions, follow-up care, medications, POC Prescriptions given X 1. 06:59 Patient left the ED. Signatures: Dispatcher [employer] EDMS Jeny Escobar RN RN Blaze Villarreal RN RN [facility] Sammi Adams ag3 Mustafa, Bladimir, MD MD mh7
[2020-10-25 07:15] VITALS: TEMP 98
[2020-10-25 07:19] VITALS: BP 162/95; O2SAT 99
--- NOTE | 2020-10-25 11:45 | RAD REPORT ---
EXAM DESCRIPTION: CTSpine Lumbar Wo Con10/25/2020 6:14 am CLINICAL HISTORY: The patient is 45 years old and is Female; trauma TECHNIQUE: Axial computed tomography images of the lumbar spine without intravenous contrast. Sagi ttal and coronal reformatted images were created and reviewed. This CT exam was performed using one or more of the following dose reduction techniques: automated exposure control, adjustment of the mA and/or kV according to patient size, and/or use of iterative reconstruction technique. COMPARISON: No relevant prior studies available. FINDINGS: Vertebrae: Laminectomy at L5-S1. No acute fracture. Discs/spinal canal/neural foramina: Disc space narrowing with degenerative endplate changes from L4 to S1. Disc bulge at L4-5 with narrowing of the thecal sac. Disc bulge at L5-S1 with narrowing of the thecal sac. Soft tissues: Unremarkable. IMPRESSION: No acute fracture or subluxation. Laminectomy L5-S1. Disc space narrowing with degenerat adela endplate changes from L4 to S1. Electronically signed by: Boyd Vilchis MD 10/25/2020 6:03 AM CDT Due to temporary technical issues with the PACS/Fluency reporting system, reports are being signed by the in house radiologists without review as a courtesy to insure prompt reporting. The interpreting radiologist is fully responsible for the content of the report
== END 2020-10-25 06:59 | disposition home or self-care (01) ==
LOC: ER 02:31
DX: S30.0XXA Contusion of lower back and pelvis, initial encounter (principal); W01.198A Fall on same level from slipping, tripping and stumbling with subsequent striking against other object, initial encounter
CPT/HCPCS: 72131; 96372; 99284

== ENCOUNTER 2023-01-08 09:32 | Emergency (ER) | payer OTHER ==
--- OUTSIDE RECORDS SUMMARY | 2023-01-08 09:35 | XMS REPORT | Continuity of Care Document ---
:1975 Author Organization [facility] t Address [address] [place] [address] Care Team Providers Name Role Phone ROBBIE BARRAGAN Primary Care Physician Unavailable RADIOLOGY Attending Clinician Unavailable Radiology Attending Clinician Unavailable RAMESH CHAUDHARY Attending Clinician Unavailable RAMESH CHAUDHARY Attending Clinician Unavailable Migel Graham Attending Clinician MIGEL AYALA Attending Clinician Unavailable Doctor Unassigned, [place] Attending Clinician Unavailable Symone Kessler MD Attending Clinician SYMONE KESSLER Attending Clinician Unavailable DAMIAN FREEDMAN Admitting Clinician Unavailable SYMONE KESSLER Admitting Clinician Unavailable Payers Payer Name Policy Type Policy Number Effective Date Expiration Date Lolita fraser [facility] [id number] 2021 ADVANTAGE CHOICE 00:00:[address] [facility] [place] [id number] 2020 PLUS 00:00:00 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 00:00: [address] Allergies, Adverse Reactions, Alerts Allergy Allergy Status Severity Reaction(s) Onset Inactive Treating Comm ents Source Name Type Date Date Clinician NO KNOWN Drug Active Univers ALLERGIE Class ity of S [place] [facility] Social History Social Habit Start Date Stop Date Quantity Comments Source Exposure to Not sure [facility] SARS-CoV-2 (event) Medica l Branch Alcohol intake 2021-06-29 2021-06-29 0 /d [facility] 00:00:00 00:00:00 Medical Branch Sex Assigned At [birth year] [facility] 00:00:00 00:00:00 Medical Branch Smoking Status Start Date Stop Date Source Never smoked tobacco [facility] Medications Ordered Filled Start Stop Current Ordering Indication Dosage Frequency Signature Comments Components Source Medication Medication Date Date Medication? Clinician (SIG) Name Name docusate Yes [id number] 250mg Take 1 U nivers sodium 250 4-26 capsule by ity of mg capsule 00:00: mouth [place] 00 daily as Medical needed for Branch Constipati on. polyethylen Yes [id number] 1{packe Take 1 Univers e glycol 4-26 t} Packet by ity of 3350 00:00: mouth [place] (MIRALAX) 00 every 24 Medica l 17 gram (twenty-fo Branch powder ur) hours as needed for Constipati on. traMADoL 50 Yes [id number] 50mg Take 1 Univ ers mg tablet 4-26 tablet by ity o f 00:00: mouth [place] 00 every 6 Medical (six) Branch hours as needed for Pain (scale 4-6). Indication s: acute pain docusate Yes [id number] 250mg Take 1 U nivers sodium 250 4-26 capsule by ity of mg capsule 00:00: mouth once [place] 00 daily as Medical needed for Branch Constipati on. polyethylen Yes [id number] 1{packe Take 1 Univers e glycol 4-26 t} Packet by ity of 3350 00:00: mouth [place] (MIRALAX) 00 every 24 Medica l 17 gram (twenty-fo Branch powder ur) hours as needed for Constipati on. traMADoL 50 Yes [id number] 50mg Take 1 Univ ers mg tablet 4-26 tablet by ity o f 00:00: mouth [place] 00 every 6 Medical (six) Branch hours as needed for Pain (scale 4-6). Indication s: acute pain docusate Yes [id number] 250mg Take 1 U nivers sodium 250 4-26 capsule by ity of mg capsule 00:00: mouth once [place] 00 daily as Medical needed for Branch Constipati on. polyethylen Yes [id number] 1{packe Take 1 Univers e glycol 4-26 t} Packet by ity of 3350 00:00: mouth [place] (MIRALAX) 00 every 24 Medica l 17 gram (twenty-fo Branch powder ur) hours as needed for Constipati on. traMADoL 50 Yes 4647 50mg Take 1 Univ ers mg tablet 4-26 tablet by ity o f 00:00: mouth [place] 00 every 6 Medical (six) Branch hours as needed for Pain (scale 4-6). Indication s: acute pain docusate Yes [id number] 250mg Take 1 U nivers sodium 250 4-26 capsule by ity of mg capsule 00:00: mouth once [place] 00 daily as Medical needed for Branch Constipati on. polyethylen Yes [id number] 1{packe Take 1 Univers e glycol 4-26 t} Packet by ity of 3350 00:00: mouth [place] (MIRALAX) 00 every 24 Medica l 17 gram (twenty-fo Branch powder ur) hours as needed for Constipati on. traMADoL 50 Yes [id number] 50mg Take 1 Univ ers mg tablet 4-26 tablet by ity o f 00:00: mouth [place] 00 every 6 Medical (six) Branch hours as needed for Pain (scale 4-6). Indication s: acute pain pregabalin 2016-0 Yes 100mg Take 100 [place] (LYRICA) 4-19 mg by ity of 100 mg 10:05: mouth 2 [place] capsule 17 (two) Medical times Branch daily. pregabalin 2017-0 Yes 100mg Take 100 [place] (LYRICA) 4-19 mg by ity of 100 mg 10:05: mouth 2 [place] capsule 17 (two) Medical times Branch daily. pregabalin 2017-0 Yes 100mg Take 100 [place] (LYRICA) 4-19 mg by ity of 100 mg 10:05: mouth 2 [place] capsule 17 (two) Medical times [place] daily. pregabalin 2017- Yes 100mg Take 100 [place] (LYRICA) 4-19 mg by ity of 100 mg 10:05: mouth 2 [place] capsule 17 (two) Medical times [place] daily. triamcinolo 2017- Yes Apply to Un [place] ne 4-19 area(s) 2 ity of acetonide 00:00: (two) [place] 0.1 % cream 00 times Medical daily. Branch triamcinolo 2016- Yes Apply to Un [place] ne 4-19 area(s) 2 ity of acetonide 00:00: (two) [place] 0.1 % cream 00 times Medical daily. Branch triamcinolo 2016- Yes Apply to Un [place] ne 4-19 area(s) 2 ity of acetonide 00:00: (two) [place] 0.1 % cream 00 times Medical daily. Branch triamcinolo Yes Apply to Un [place] ne 4-19 area(s) 2 ity of acetonide 00:00: (two) [place] 0.1 % cream 00 times Medical daily. Branch traMADOL 50 Yes 1{tbl} Take 1 Un [place] mg tablet 1-11 tablet by ity o f 00:00: mouth as [place] 00 needed. Medical Branch traMADOL 50 Yes 1{tbl} Take 1 [place] mg tablet 1-11 tablet by ity o f 00:00: mouth as [place] 00 needed. Medical Branch traMADOL 50 Yes 1{tbl} Take 1 [place] mg tablet 1-11 tablet by ity o f 00:00: mouth as [place] 00 needed. Medical Branch traMADOL 50 Yes 1{tbl} Take 1 [place] mg tablet 1-11 tablet by ity o f 00:00: mouth as [place] 00 needed. Medical Branch ADDERALL XR 2015-07 Yes 1{capsu Take 1 U nivers 30 mg 24 hr 1-15 le} capsule by it y of capsule 00:00: mouth [place] 00 daily. Medical Branch ADDERALL XR 2015-07 Yes 1{capsu Take 1 U nivers 30 mg 24 hr 1-15 le} capsule by it y of capsule 00:00: mouth [place] 00 daily. Medical Branch ADDERALL XR 2015-07 Yes 1{capsu Take 1 U nivers 30 mg 24 hr 1-15 le} capsule by it y of capsule 00:00: mouth 00 daily. Medical Branch ADDERALL XR 2016- Yes 1{capsu Take 1 U nivers 30 mg 24 hr 1-15 le} capsule by it y of capsule 00:00: mouth 00 daily. [facility] Vital Signs Vital Name Observation Time Observation Value Comments Source Systolic blood 2021-06-29 17:41:00 167 mm[Hg] Univer sity [facility] Diastolic blood 2021-06-29 17:41:00 105 mm[Hg] [facility] Heart rate 2021-06-29 17:41:00 92 /min [facility] Body height 2021-06-29 17:40:00 167.6 cm [facility] Body weight 2021-06-29 17:40:00 133.312 kg [facility] BMI 2021-06-29 17:40:00 47.44 kg/m2 [facility] Procedures This patient has no known procedures. Encounters Start End Encounter Admission Attending Care Care Encounter Source Date/Time Date/Time Type Type Clinicians Facility Department ID 2022-05-13 2022-05-13 Outpatient R RADIOLOGY [facility] [id number] Univers 16:49:55 23:59:00 ity of [place] [facility] 2022-05-13 2022-05-13 [facility] Radiology [facility] [id number] Univers 16:49:55 23:59:00 [facility] [id number] ity of [place] [id number] [facility] [id number] [address] 2021-06-29 2021-06-29 Outpatient R RAMESH CHAUDHARY [facility] [id number] Univers 12:00:00 23:59:00 RAMESH CHAUDHARY itfroy [facility] 2021-06-29 2021-06-29 [facility] [id number] Univers 12:00:00 23:59:00 Encounter Ramesh [facility] [id number] ity of [place] [id number] [facility] [id number] [facility] 807 Branch (CLC) 2021-06-29 2021-06-29 Office Ramesh Chaudhary [facility] [id number] Univers 11:30:00 12:00:00 Visit Hua Ayalana [facility] [id number] [place].2.686 [place] [id number] [facility] [address] Branch OFFICE BUILDING 2021-06-29 2021-06-29 Outpatient R JAMIE [facility] [id number] Univers 11:30:00 11:30:00 MIGEL alcantara [facility] 2021-06-29 2021-06-29 Orders Doctor YONAS [id number] Univers 00:00:00 00:00:00 Only Unassigned, HUMBERTO [id number] ity of [place] [facility] 4.2.7.2.686 Jún[place] as [id number] [facility] [address] [place] 2021-05-25 2021-05-25 Orders Doctor YONAS [id number] Univers 00:00:00 00:00:00 Only Unassigned, HUMBERTO [id number] ity of [place] [facility] [id number] [place]ún[place] as [id number] [facility] [address] [place] 2020-10-26 2020-10-26 Emergency [facility] [id number] Univers 13:40:00 17:40:00 Symone Hilliard [id number] i [id number] [place] [id number] [facility] 084 Branch 2020-10-26 2020-10-26 Emergency X [facility] ERT [id number] Univers 13:40:00 17:40:00 SYMONE alcantara [facility] 2020-10-26 2020-10-26 Emergency [facility] [id number] 13:40:00 17:40:00 Symone Hilliard [id number] [place] [id number] [place] [id number] [id number] Results This patient has no known results.
[2023-01-08] MEDS ORDERED: TDAP (DIPHTH,PERTUSS(ACELL),TET VAC) 0.5 ML VIAL IMVAC ONE (10:13)
--- NOTE | 2023-01-08 11:35 | RAD REPORT ---
EXAM DESCRIPTION: RAD - Hand Right 3 View - 01/08/2023 10:38 am CLINICAL HISTORY: laceration, eval for FB COMPARISON: No comparisons TECHNIQUE: Right hand, 3 views. FINDINGS: No fracture is identified. There is no dislocation or periosteal reaction noted. No evidence of radiopaque foreign body. Soft ti ssue swelling about the second digit. No other soft tissue abnormality. IMPRESSION: Soft tissue swelling about the second digit. No evidence of radiopaque foreign body. No acute osseus abnormality.
--- NOTE | 2023-01-08 12:02 | EDPHYS ---
Physician Documentation [facility] Name: Cristy Caceres Age: 47 yrs Sex: Female : 1975 Arrival Date: 01/08/2023 Time: 09:32 Bed 13 Private MD: ED Physician Feliz Brown HPI: 01/08 11:06 This 47 yrs old Female presents to ER via Ambulatory with complaints of Hand Injury. sb4 11:06 The patient or guardian reports a laceration, clean, 3 cm(s), simple. The complaints sb4 affect the Right first web space. Context: The problem was sustained at home, resulted from a direct blow, she was pushing a glass table into the dumpster when a piece of it came back and hit her hand. Onset: The symptoms/episode began/occurred this morning. Modifying factors: The symptoms are alleviated by nothing, the symptoms are aggravated by nothing. Associated signs and symptoms: The patient has no apparent associated signs or symptoms. Severity of symptoms:. 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 - Social history:: Smoking status: unknown. ROS: 11:08 Constitutional: Negative for fever, chills, and weight loss. sb4 11:08 Skin: Positive for laceration(s). 11:08 All other systems are negative. Exam: 11:08 Constitutional: This is a well developed, well nourished patient who is awake, alert, sb4 and in no acute distress. Head/Face: Normocephalic, atraumatic. Eyes: Extra-ocular motions intact. Periorbital areas with no swelling, redness, or edema. 11:08 Skin: injury, that can be described as clean, no foreign body, with mild bleeding, "arc" shaped. Vital Signs: 09:40 BP 187 / 98; Pulse 89; Resp 17; Temp 98.3; Pulse Ox 100% on R/A; Weight 127.01 kg; hb Height 5 ft. 6 in. ; Pain 2/10; 12:15 BP 194 / 99; Pulse 88; Resp 18; Pulse Ox 100% on R/A; db 09:40 Body Mass Index 45.19 (127.01 kg, 167.64 cm) hb 09:40 Pain Scale: Adult hb Laceration: 12:12 Wound Repair of 3cm ( 1.2in ) subcutaneous laceration to right hand and Right first web sb4 space. Linear shaped.. Minimal contamination.. Minimal bleeding noted.. Distal neuro/vascular/tendon intact. Anesthesia: Local anesthetic administered with 3 mls of 1% lidocaine w/ Epi. Wound prep: Moderate cleansing with hibiclenz by me, Wound irrigation with saline by me, Wound explored moderately. Skin closed with 3 4-0 Prolene using simple sutures and sterile technique. Patient tolerated well. MDM: 09:35 Patient medically screened. sb4 12:02 Differential diagnosis: laceration, tendon laceration, FB, fracture. Data reviewed: sb4 vital signs, nurses notes, radiologic studies, plain films, I have discussed the patient's presentation/case with the attending Emergency Department Physician; and as a result, I will discharge patient. I considered the following discharge prescriptions or medication management in the emergency department Antibiotics: At this time antibiotics are not recommended. Counseling: I had a detailed discussion with the patient and/or guardian regarding: the historical points, exam findings, and any diagnostic results supporting the discharge/admit diagnosis, radiology results, the need for outpatient follow up, for suture removal in 7-10 days. 01/08 09:47 Order name: Hand Right 3 View XRAY; Complete Time: 11:36 sb4 Administered Medications: 10:08 Drug: Boostrix Tdap IM 0.5 ml Route: IM; Site: right deltoid; db 12:18 Follow up: Response: No adverse reaction db Disposition Summary: 01/08/23 12:01 Discharge Ordered Location: Home sb4 Problem: new sb4 Symptoms: have improved sb4 Condition: Stable sb4 Diagnosis - Laceration without foreign body of right hand, initial encounter sb4 Followup: sb4 - With: Emergency Department - When: 7 - 10 days - Reason: Staple/Suture removal Discharge Instructions: - Discharge Summary Sheet sb4 - Laceration Care, Adult, [id number] sb4 Forms: - Medication Reconciliation Form sb4 - Thank You Letter sb4 - Antibiotic Education sb4 - Prescription Opioid Use sb4 - [email or web address] sb4 Signatures: Dispatcher [employer] Judith Donohue, RN Orquidea Arce RN Jaymie Mckenna, GABY GRIFFIN sb4
--- NOTE | 2023-01-08 12:02 | ER ---
Nurse's Notes [facility] Name: Cristy Caceres Age: 47 yrs Sex: Female : 1975 Arrival Date: 01/08/2023 Time: 09:32 Bed 13 Private MD: Diagnosis: Laceration without foreign body of right hand, initial encounter Presentation: 01/08 09:40 Chief complaint: Right hand laceration from glass table just prior to arrival. Bleeding hb controlled. Coronavirus screen: At this time, the client does not indicate any symptoms associated with coronavirus-19. Ebola Screen: No symptoms or risks identified at this time. Initial Sepsis Screen: Does the patient meet any 2 criteria? No. Patient's initial sepsis screen is negative. Does the patient have a suspected source of infection? No. Patient's initial sepsis screen is negative. Risk Assessment: Do you want to hurt yourself or someone else? Patient reports no desire to harm self or others. Onset of symptoms was January 08, 2023. 09:40 Method Of Arrival: Ambulatory hb 09:40 Acuity: TWIN 4 hb Triage Assessment: 10:09 General: Appears in no apparent distress. Behavior is calm, cooperative. Pain: db Complains of pain in right hand. Injury Description: Laceration sustained to right hand. 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 - Social history:: Smoking status: unknown. Screenin:10 [facility] ED Fall Risk Assessment (Adult) History of falling in the last 3 months, db including since admission No falls in past 3 months (0 pts) Confusion or Disorientation No (0 pts) Intoxicated or Sedated No (0 pts) Impaired Gait No (0 pts) Mobility Assist Device Used No (0 pt) Altered Elimination No (0 pt) Score/Fall Risk Level 0 - 2 = Low Risk Oriented to surroundings, Maintained a safe environment. Abuse screen: Denies threats or abuse. Denies injuries from another. Nutritional screening: No deficits noted. Tuberculosis screening: No symptoms or risk factors identified. Assessment: 10:10 Reassessment: Patient appears in no apparent distress at this time. Patient and/or db family updated on plan of care and expected duration. Pain level reassessed. Patient is alert, oriented x 3, equal unlabored respirations, skin warm/dry/pink. General: Appears in no apparent distress. comfortable, Behavior is calm, cooperative. Neuro: Level of Consciousness is awake, alert, obeys commands, Oriented to person, place, time, situation. Respiratory: Airway is patent Respiratory effort is even, unlabored, Respiratory pattern is regular, symmetrical. 12:15 Reassessment: Patient appears in no apparent distress at this time. Patient and/or db family updated on plan of care and expected duration. Pain level reassessed. Patient is alert, oriented x 3, equal unlabored respirations, skin warm/dry/pink. Neuro: Level of Consciousness is awake, alert, obeys commands, Oriented to person, place, time, situation. Vital Signs: 09:40 BP 187 / 98; Pulse 89; Resp 17; Temp 98.3; Pulse Ox 100% on R/A; Weight 127.01 kg; hb Height 5 ft. 6 in. ; Pain 2/10; 12:15 BP 194 / 99; Pulse 88; Resp 18; Pulse Ox 100% on R/A; db 09:40 Body Mass Index 45.19 (127.01 kg, 167.64 cm) hb 09:40 Pain Scale: Adult hb ED Course: 09:34 Patient arrived in ED. hb 09:35 Jaymie Underwood PA-C is PHCP. sb4 09:35 Feliz Brown MD is Attending Physician. sb4 09:42 Triage completed. hb 09:43 Arm band placed on. hb 09:59 Orquidea Mcnulty, RN is Primary Nurse. db 10:09 Patient placed in an exam room. db 10:39 Hand Right 3 View XRAY In Process Unspecified. EDMS 12:15 Patient has correct armband on for positive identification. Bed in low position. Call db light in reach. Side rails up X 1. Pulse ox on. NIBP on. 12:15 Assist provider with laceration repair on right hand Performed by Jaymie Underwood PA-C. db Patient did not have IV access during this emergency room visit. Administered Medications: 10:08 Drug: Boostrix Tdap IM 0.5 ml Route: IM; Site: right deltoid; db 12:18 Follow up: Response: No adverse reaction db Medication: 12:15 VIS not applicable for this client. db Outcome: 12:01 Discharge ordered by MD. woodson 12:16 Discharged to home ambulatory. db 12:16 Condition: stable 12:16 Discharge instructions given to patient, Instructed on discharge instructions, follow up and referral plans. 12:17 Patient left the ED. db Signatures: Dispatcher [employer] EDMS Judith Campoverde RN RN Orquidea Back RN RN Jaymie Stephen PA-C PA-C sb4
[2023-01-08 12:38] VITALS: TEMP 98.3; O2SAT 100
[2023-01-08 12:39] VITALS: BP 194/99
== END 2023-01-08 12:17 | disposition home or self-care (01) ==
LOC: ER 09:32
PROC: 0HQFXZZ Repair Right Hand Skin, External Approach (ICD-10-PCS; principal; 2023-01-08)
DX: S61.411A Laceration without foreign body of right hand, initial encounter (principal)
CPT/HCPCS: 96372; 99284

== ENCOUNTER 2024-07-09 20:40 | Emergency (ER) | payer OTHER ==
--- OUTSIDE RECORDS SUMMARY | 2024-07-09 20:49 | XMS REPORT | Continuity of Care Document ---
Author Name Unknown Address [address] [place] [address] [facility] thconnect Address [address] [place] [address] Care Team Providers Care Film Crew Member Name Role Phone ROBBIE BARRAGAN Primary Care Physician Unavaila ble RADIOLOGY Attending Clinician Unavailable Radiology Attending Clinician Unavailable RAMESH CHAUDHARY Attending Clinician Unavailable RAMESH CHAUDHARY Attending Clinician Unavailable Alexandra Graham Attending Clinician ALEXANDRA AYALA Attending Clinician Unavailab le Doctor Unassigned, [place] Attending Clinician U Liu Upton MD Attending Clinician LIU KESSLER Attending Clinician Unavailable DAMIAN FREEDMAN Admitting Clinician Unavailable LIU KESSLER Admitting Clinician Unavailable Payers Payer Name Policy Type Policy Number Effective Date Expirati on Date Source [facility] MED ADVANTAGE CHOICE PPO [id number] 2023 00:00:00 [facility] [place] [employer] [id number] 2020 00:00:00 [facility] MEDICARE COMPLETE CHOICE [id number] 2020 00:00:00 2021 00:00:00 Problems Condition Name Condition Details Condition Category Status Onset Date Resolution Date Last Treatment Date Treating Clinician Comments Source Right thyroid nodule Right thyroid nodule Disease Active 08-15 00:00: 00 [facility] 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 08-10 00:00: 00 [facility] Allergies, Adverse Reactions, Alerts Allergy Name Allergy Type Status Severity Reaction(s) Onset Date Inactive Date Treating Clinician Comments Source NO KNOWN ALLERGIE S Drug Class Active [facility] Social History Social Habit Start Date Stop Date Quantity Comments Source [facility]2 (event) 2021-05-30 00:00:00 2021-06-29 11:33:00 Not sure [facility] History of Social function 2021-06-29 00:00:00 2021-06-29 00:00:00 [facility] Alcohol intake 2016-10-19 00:00:00 2016-10-19 00:00:00 0 /d [facility] Sex Ass[birth year] At 1975 00:00:00 1975 00:00:00 [facility] Smoking Status Start Date Stop Date Source Never smoked tobacco [facility] Medications Ordered Medication Name Filled Medication Name Start Date Stop Date Current Medication? Ordering Clinician Indication Dosage Frequency Signature (SIG) Comments Components Source docusate sodium 250 mg capsule 10-26 00:00: 00 Yes [id number] 250mg Take 1 capsule by mouth once daily as needed for Constipati on. [facility] polyethylen e glycol 3350 (MIRALAX) 17 gram powder 10-26 00:00: 00 Yes [id number] 1{packe t} Take 1 Packet by mouth every 24 (twenty-fo ur) hours as needed for Constipati on. [facility] traMADoL 50 mg tablet 10-26 00:00: 00 Yes [id number] 50mg Take 1 tablet by mouth every 6 (six) hours as needed for Pain (scale 4-6). Indication s: acute pain [facility] pregabalin (LYRICA) 100 mg capsule 10-19 10:05: 17 Yes 100mg Take 100 mg by mouth 2 (two) times daily. [facility] triamcinolo ne acetonide 0.1 % cream 10-19 00:00: 00 Yes Apply to area(s) 2 (two) times daily. [facility] traMADOL 50 mg tablet 07-13 00:00: 00 Yes 1{tbl} Take 1 tablet by mouth as needed. [facility] ADDERALL XR 30 mg 24 hr capsule 2015-07 00:00: 00 Yes 1{capsu le} Take 1 capsule by mouth daily. [facility] Vital Signs Vital Name Observation Time Observation Value Comments S evelio Systolic blood pressure 2021-06-29 17:41:00 167 mm[Hg] [facility] Diastolic blood pressure 2021-06-29 17:41:00 105 mm[Hg] [facility] Heart rate 2021-06-29 17:41:00 92 /min [facility] Body height 2021-06-29 17:40:00 167.6 cm [facility] Body weight 2021-06-29 17:40:00 133.312 kg [facility] BMI 2021-06-29 17:40:00 47.44 kg/m2 [facility] Encounters Start Date/Time End Date/Time Encounter Type Admission Type Attending Clinicians Care Facility Care Department Encounter ID Source 2023-10-03 00:00:00 2023-10-03 00:00:00 Outpatient R RADIOLOGY [facility] [id number] [facility] 2023-07-12 00:00:00 2023-07-12 00:00:00 Outpatient R RADIOLOGY [facility] [id number] [facility] 2022-05-13 16:49:55 2022-05-13 23:59:00 Outpatient R RADIOLOGY [facility] [id number] [facility] 2022-05-13 16:49:55 2022-05-13 23:59:00 Hospital Encounter Radiology [facility] [id number] [facility] 2021-06-29 12:00:00 2021-06-29 23:59:00 Outpatient R RAMESH CHAUDHARY PATRICK [facility] [id number] [facility] 2021-06-29 12:00:00 2021-06-29 23:59:00 Hospital Encounter Ramesh Chaudhary [facility] [id number] [facility] 2021-06-29 11:30:00 2021-06-29 12:00:00 Office Visit Ramesh Chaudhary Shanna C [facility] [id number] [id number] [id number] [facility] 2021-06-29 11:30:00 2021-06-29 11:30:00 Outpatient ALEXANDRA ELLIS [facility] [id number] [facility] 2021-06-29 00:00:00 2021-06-29 00:00:00 Orders Only Doctor Unassigned, [place] [facility] [id number] [id number] [id number] [facility] 2021-06-03 00:00:00 2021-06-03 00:00:00 Patient Secure Msg Doctor Unassigned, [place] [facility] [id number] [id number] [id number] [id number] [facility] 2021-05-25 00:00:00 2021-05-25 00:00:00 Orders Only Doctor Unassigned, [place] [facility] [id number] [id number] [id number] [id number] [facility] 2020-10-26 13:40:00 2020-10-26 17:40:00 Emergency Liu Kessler [facility] [id number] [id number] [id number] 2020-10-26 13:40:00 2020-10-26 17:40:00 Emergency Liu Kessler [facility] [id number] [id number] [id number] [facility] 2020-10-26 13:40:00 2020-10-26 17:40:00 Emergency X LIU KESSLER [facility] ERT [id number] [facility]
[2024-07-09] MEDS ORDERED: HYDROCODONE/CHLORPHEN 5 ML/OSYR ONE (21:01)
--- NOTE | 2024-07-09 21:15 | RAD REPORT ---
EXAMINATION: TWO VIEW CHEST XR CLINICAL INDICATION: CHEST PAIN TECHNIQUE: 2 views of the chest was performed. COMPARISON: 10/05/2017 FINDINGS: The lungs are well inflated and clear. The heart is mildly enlarged. No displaced fractures evident.
[2024-07-09 22:06] LABS: SARS-CoV-2 Antigen CONTROL BLUE LINE VIS/BG OK; SARS-CoV-2 Antigen Rapid Res Negative (Negative)
--- NOTE | 2024-07-09 22:44 | ER ---
Nurse's Notes [facility] Name: Cristy Caceres Age: 48 yrs Sex: Female : 1975 Arrival Date: 07/09/2024 Time: 20:40 Bed 14 Private MD: Diagnosis: Cough Presentation: 07/09 20:45 Chief complaint: Patient states: complaints of shoulder pain, sore throat \T\ coughing rg5 for 1 wk now. 20:45 Coronavirus screen: Vaccine status: Patient reports being unvaccinated. Client denies rg5 travel out of the [place] in the last 14 days. Ebola Screen: Patient negative for fever greater than or equal to 101.5 degrees Fahrenheit, and additional compatible Ebola Virus Disease symptoms Patient denies exposure to infectious person. Patient denies travel to an Ebola-affected area in the 21 days before illness onset. Initial Sepsis Screen: Does the patient meet any 2 criteria? No. Patient's initial sepsis screen is negative. Does the patient have a suspected source of infection? No. Patient's initial sepsis screen is negative. Risk Assessment: Do you want to hurt yourself or someone else? Patient reports no desire to harm self or others. Onset of symptoms was July 09, 2024 at 20:53. 20:45 Method Of Arrival: Ambulatory rg5 20:45 Acuity: TWIN 4 rg5 Triage Assessment: 20:54 General: Appears in no apparent distress. comfortable, Behavior is calm, cooperative, rg5 appropriate for age. Pain: Complains of pain in shoulders. EENT: No deficits noted. Neuro: Level of Consciousness is awake, alert, obeys commands, Oriented to person, place, time. Cardiovascular: Denies chest pain. Respiratory: Reports shortness of breath cough that is productive, Airway is patent Trachea midline Respiratory effort is even, unlabored, Respiratory pattern is regular, symmetrical. GI: Abdomen is round non-distended, Abd is soft and non tender. : No signs and/or symptoms were reported regarding the genitourinary system. Derm: Skin is intact, Skin is dry, Skin is normal. Musculoskeletal: Circulation, motion, and sensation intact. Range of motion: intact in all extremities. 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 - Infectious Disease History:: Denies. - Social history:: Smoking status: Patient denies any tobacco usage or history of. Screenin:45 [facility] ED Fall Risk Assessment (Adult) History of falling in the last 3 months, rg5 including since admission No falls in past 3 months (0 pts) Confusion or Disorientation No (0 pts) Intoxicated or Sedated No (0 pts) Impaired Gait No (0 pts) Mobility Assist Device Used No (0 pt) Altered Elimination No (0 pt) Score/Fall Risk Level 0 - 2 = Low Risk Oriented to surroundings, Maintained a safe environment, Hourly rounding (assess needs \T\ fall precautionary measures) done. Abuse screen: Denies threats or abuse. Nutritional screening: No deficits noted. Tuberculosis screening: No symptoms or risk factors identified. Assessment: 20:45 General: Appears in no apparent distress. comfortable, Behavior is calm, cooperative. rg5 20:45 Neuro: Level of Consciousness is awake, alert, Oriented to person, place, time, rg5 situation. Cardiovascular: Denies chest pain. Respiratory: Reports shortness of breath cough that is Airway is patent Trachea midline Respiratory effort is even, unlabored. GI: Abdomen is round non-distended. : No signs and/or symptoms were reported regarding the genitourinary system. EENT: No deficits noted. 21:35 Reassessment: No changes from previously documented assessment. Patient and/or family rg5 updated on plan of care and expected duration. Pain level reassessed. Patient is alert, oriented x 3, equal unlabored respirations, skin warm/dry/pink. 22:30 Reassessment: No changes from previously documented assessment. Patient and/or family rg5 updated on plan of care and expected duration. Pain level reassessed. Vital Signs: 20:45 BP 204 / 119; Pulse 100; Resp 18; Temp 98.3(O); Pulse Ox 95% on R/A; Weight 122.47 kg; rg5 Height 5 ft. 6 in. ; Pain 5/10; 21:26 BP 194 / 143; Pulse 99; Resp 19; Pulse Ox 97% on R/A; rg5 22:30 BP 165 / 90; Pulse 91; Resp 17; Pulse Ox 97% on R/A; rg5 20:45 Body Mass Index 43.58 (122.47 kg, 167.64 cm) rg5 20:45 Pain Scale: Adult rg5 ED Course: 20:42 Patient arrived in ED. ra3 20:43 Jaymie Underwood PA-C is PHCP. sb4 20:43 Stoney Purdy MD is Attending Physician. sb4 20:45 Patient has correct armband on for positive identification. Bed in low position. Call rg5 light in reach. Side rails up X 1. Door closed. Noise minimized. Warm blanket given. 20:45 No provider procedures requiring assistance completed. rg5 20:50 Cristian German, RN is Primary Nurse. rg5 20:54 Triage completed. rg5 20:54 Arm band placed on right wrist. rg5 21:08 Chest Pa And Lat (2 Views) XRAY In Process Unspecified. EDMS 22:57 Patient did not have IV access during this emergency room visit. rg5 22:58 Provided Education on: post er care. rg5 Administered Medications: 20:50 Drug: Tussionex Pennkinetic ER PO Suspension 5 ml PO once Route: PO; rg5 21:30 Follow up: Response: No adverse reaction rg5 22:45 Drug: AZITHromycin PO 500 mg PO once Route: PO; rg5 22:59 Follow up: Response: No adverse reaction rg5 22:45 Drug: predniSONE PO 40 mg PO once Route: PO; rg5 22:59 Follow up: Response: No adverse reaction rg5 Medication: 20:45 VIS not applicable for this client. rg5 Outcome: 22:44 Discharge ordered by . sb4 22:58 Discharged to home ambulatory, rg5 22:58 Condition: stable 22:58 Discharge instructions given to patient, Instructed on discharge instructions, follow up and referral plans. Demonstrated understanding of instructions, follow-up care, medications, Prescriptions given X 3, 23:00 Patient left the ED. rg5 Signatures: Dispatcher [employer] EDMS Jaymie Underwood PA-C PA-C sb4 Liza Mandujano ra3 Cristian German, RN RN rg5
--- NOTE | 2024-07-09 22:44 | EDPHYS ---
Physician Documentation [facility] Name: Cristy Caceres Age: 48 yrs Sex: Female : 1975 Arrival Date: 07/09/2024 Time: 20:40 Bed 14 Private MD: ED Physician Stoney Purdy HPI: 07/09 20:49 This 48 yrs old Female presents to ER via Unassigned with complaints of Painful Cough. sb4 21:22 Patient reports flulike symptoms x 1 week- sinus congestion, sore throat, cough. States sb4 that the cough is intermittently productive. Denies any known fever. States that now she is having a lot of pain in her back and shoulders from the cough. Denies any nausea, vomiting, diarrhea. 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 - Infectious Disease History:: Denies. - Social history:: Smoking status: Patient denies any tobacco usage or history of. ROS: 21:22 Constitutional: Negative for fever, chills, and weight loss, sb4 21:22 ENT: Positive for sinus congestion, sore throat, 21:22 Respiratory: Positive for cough, 21:22 All other systems are negative, Exam: 21:22 Head/Face: Normocephalic, atraumatic. Eyes: Extra-ocular motions intact. Periorbital sb4 areas with no swelling, redness, or edema. ENT: Mucous membranes moist. Cardiovascular: Regular rate and rhythm with a normal S1 and S2. Respiratory: No increased work of breathing, no retractions or nasal flaring. Abdomen/GI: Soft, non-tender, no distension. Skin: Warm, dry with normal turgor. Normal color with no rashes, no lesions, and no evidence of cellulitis. 21:22 Constitutional: The patient appears alert, awake, obviously ill, Vital Signs: 20:45 BP 204 / 119; Pulse 100; Resp 18; Temp 98.3(O); Pulse Ox 95% on R/A; Weight 122.47 kg; rg5 Height 5 ft. 6 in. ; Pain 5/10; 21:26 BP 194 / 143; Pulse 99; Resp 19; Pulse Ox 97% on R/A; rg5 22:30 BP 165 / 90; Pulse 91; Resp 17; Pulse Ox 97% on R/A; rg5 20:45 Body Mass Index 43.58 (122.47 kg, 167.64 cm) rg5 20:45 Pain Scale: Adult rg5 MDM: 20:44 Medical Screening Exam initiated sb4 22:43 Data reviewed: vital signs, nurses notes, lab test result(s), radiologic studies, and sb4 as a result, I will discharge patient. Counseling: I had a detailed discussion with the patient and/or guardian regarding the historical points, exam findings, and any diagnostic results supporting the discharge/admit diagnosis, lab results, radiology results, the need for outpatient follow up, for definitive care, to return to the emergency department if symptoms worsen or persist or if there are any questions or concerns that arise at home, smoking cessation. 22:47 ED course: patient states she did not take her blood pressure medication today, will sb4 take when she gets home. denies any chest pain, sob, blurry vision, dizziness. 07/09 20:48 Order name: SARS RAPID; Complete Time: 22:07 sb4 07/09 20:48 Order name: Flu; Complete Time: 22:07 sb4 07/09 20:48 Order name: Strep; Complete Time: 22:07 sb4 07/09 20:48 Order name: RSV; Complete Time: 22:07 sb4 07/09 22:10 Order name: Throat Culture EDMD 07/09 20:48 Order name: Chest Pa And Lat (2 Views) XRAY; Complete Time: 21:16 sb4 Administered Medications: 20:50 Drug: Tussionex Pennkinetic ER PO Suspension 5 ml PO once Route: PO; rg5 21:30 Follow up: Response: No adverse reaction rg5 22:45 Drug: AZITHromycin PO 500 mg PO once Route: PO; rg5 22:59 Follow up: Response: No adverse reaction rg5 22:45 Drug: predniSONE PO 40 mg PO once Route: PO; rg5 22:59 Follow up: Response: No adverse reaction rg5 Disposition: 07/10 03:06 Co-signature as Attending Physician, Stoney Purdy MD I agree with the assessment sp4 and plan of care. I reviewed the patient's care provided by the Advanced Practice Provider and agree with the diagnosis and treatment plan. Disposition Summary: 07/09/24 22:44 Discharge Ordered Notes: Location: Home sb4 Problem: new sb4 Symptoms: have improved sb4 Condition: Stable sb4 Diagnosis - Cough sb4 Followup: sb4 - With: Emergency Department - When: As needed - Reason: Trouble breathing, Worsening of condition Discharge Instructions: - Discharge Summary Sheet sb4 - Acute Bronchitis, Adult, [id number]-[id number]-Epdr sb4 - Cough, Adult, Tjij-kw-Vdkq sb4 - Viral Respiratory Infection, Kntm-Ze-Nncn sb4 Forms: - Antibiotic Education sb4 - Patient Portal Instructions sb4 - Leadership Thank You Letter sb4 Prescriptions: - Tessalon Perles 100 mg Oral Capsule - take 1 capsule ORAL route every 8 hours As needed; 15 capsule; Refills: 0, sb4 Product Selection Permitted - Zithromax Z-Gabriel 250 mg Oral tablet - take 1 tablet ORAL route once daily for 4 days; 4 tablet; Refills: 0, Product sb4 Selection Permitted - Prednisone 20 mg Oral Tablet - take 2 tablets ORAL route once daily for 5 days; 10 tablet; Refills: 0, Product sb4 Selection Permitted Signatures: Dispatcher [employer] Jaymie Alejandra PA-C PA-C sb4 Stoney Purdy MD MD sp4 Cristian German, RN RN rg5
[2024-07-09] MEDS ORDERED: AZITHROMYCIN 250 MG TAB ONE (22:47)
[2024-07-09] MEDS ORDERED: predniSONE 20 MG TAB ONE (22:47)
[2024-07-09 23:14] VITALS: TEMP 98.3
[2024-07-09 23:16] VITALS: BP 165/90; O2SAT 97
== END 2024-07-09 23:00 | disposition home or self-care (01) ==
LOC: ER 20:40
DX: R05.9 Cough, unspecified (principal); Z11.52 Encounter for screening for COVID-19; I10 Essential (primary) hypertension
CPT/HCPCS: 87070; 36415; 87081; 87807; 87804 ×2; 71046; 99283; 87811; J7512

== ENCOUNTER 2024-09-12 21:14 | Emergency (ER) | payer OTHER ==
--- OUTSIDE RECORDS SUMMARY | 2024-09-12 21:22 | XMS REPORT | Continuity of Care Document ---
Author Name Unknown Address [address] [place] [address] [facility] Address [address] [place] [address] Care Team Providers Care Child Development Assistant Name Role Phone ROBBIE BARRAGAN Primary Care Physician Unavaila ble RADIOLOGY Attending Clinician Unavailable Radiology Attending Clinician Unavailable RAMESH CHAUDHARY Attending Clinician Unavailable RAMESH CHAUDHARY Attending Clinician Unavailable Alexandra Graham Attending Clinician ALEXANDRA AYALA Attending Clinician Unavailab le Doctor Unassigned, [place] Attending Clinician U Liu Upton MD Attending Clinician [phone] LIU KESSLER Attending Clinician Unavailable DAMIAN FREEDMAN Admitting Clinician Unavailable LIU KESSLER Admitting Clinician Unavailable Payers Payer Name Policy Type Policy Number Effective Date Expirati on Date Source [facility] [employer] MED[employer] ADVANTAGE PPO [id number] 2023 00:00:00 [facility] [place] [employer] [id number] 2020 00:00:00 [facility] MEDICARE COMPLETE CHOICE [id number] 2020 00:00:00 2021 00:00:00 Problems Condition Name Condition Details Condition Category Status Onset Date Resolution Date Last Treatment Date Treating Clinician Comments Source Right thyroid nodule Right thyroid nodule Disease Active 08-15 00:00: 00 [facility] 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 History of Social function 2021-06-29 00:00:00 2021-06-29 00:00:[address] [facility] Alcohol intake 2016-10-19 00:00:00 2016-10-19 00:00:00 0 /d [facility] Sex Assigned At 1975 00:00:00 1975 00:00:[address] [facility] Smoking Status Start Date Stop Date Source Never smoked tobacco [facility] Medications Ordered Medication Name Filled Medication Name Start Date Stop Date Current Medication? Ordering Clinician Indication Dosage Frequency Signature (SIG) Comments Components Source docusate sodium 250 mg capsule 10-26 00:00: 00 Yes [id number] 250mg Take 1 capsule by mouth once daily as needed for Constipati on. [facility] polyethylen e glycol 3350 (MIRALAX) 17 gram powder 10-26 00:00: 00 Yes [id number] 1{packe t} Take 1 Packet by mouth every 24 (twenty-fo ur) hours as needed for Constipati on. [facility] traMADoL 50 mg tablet 10-26 00:00: 00 Yes [id number] 50mg Take 1 tablet by mouth every 6 (six) hours as needed for Pain (scale 4-6). Indication s: acute pain [facility] pregabalin (LYRICA) 100 mg capsule 10-19 10:05: 17 Yes 100mg Take 100 mg by mouth 2 (two) times daily. [facility] triamcinolo ne acetonide 0.1 % cream 10-19 00:00: 00 Yes Apply to area(s) 2 (two) times daily. [facility] traMADOL 50 mg tablet 07-13 00:00: 00 Yes 1{tbl} Take 1 tablet by mouth as needed. [facility] ADDERALL XR 30 mg 24 hr capsule 2015-07 00:00: 00 Yes 1{capsu le} Take 1 capsule by mouth daily. [facility] Vital Signs Vital Name Observation Time Observation Value Comments Lolita fraser Systolic blood pressure 2021-06-29 17:41:00 167 mm[Hg] [facility] Diastolic blood pressure 2021-06-29 17:41:00 105 mm[Hg] [facility] Heart rate 2021-06-29 17:41:00 92 /min [facility] Body height 2021-06-29 17:40:[address] [facility] Body weight 2021-06-29 17:40:[address] [facility] BMI 2021-06-29 17:40:00 47.44 kg/m2 [facility] Encounters Start Date/Time End Date/Time Encounter Type Admission Type Attending Clinicians Care Facility Care Department Encounter ID Source 2023-10-03 00:00:00 2023-10-03 00:00:[address] [facility] [id number] [facility] 2023-07-12 00:00:00 2023-07-12 00:00:[address] [facility] [id number] [facility] 2022-05-13 16:49:55 2022-05-13 23:59:[address] [facility] [id number] [facility] 2022-05-13 16:49:55 2022-05-13 23:59:[address] [facility] [id number] [facility] 2021-06-29 12:00:00 2021-06-29 23:59:00 Outpatient R RAMESH CHAUDHARY [facility] [id number] [facility] 2021-06-29 12:00:00 2021-06-29 23:59:00 Hospital Encounter Jet[facility]amesh [facility] [id number] [id number] [id number] [facility] 2021-06-29 11:30:00 2021-06-29 12:00:00 Office Visit Ramesh Chaudhary Shanna C [facility] [id number] [id number] [id number] [id number] [facility] 2021-06-29 11:30:00 2021-06-29 11:30:[address] [facility] [id number] [facility] 2021-06-29 00:00:00 2021-06-29 00:00:00 Orders Only Doctor Unassigned, [place] [facility] [id number] [id number] [id number] [facility] 2021-06-03 00:00:00 2021-06-03 00:00:00 Patient Secure Msg Doctor Unassigned, [place] [facility] [id number] [id number] [id number] [id number] [facility] 2021-05-25 00:00:00 2021-05-25 00:00:00 Orders Only Doctor Unassigned, [place] [facility] [id number] [id number] [id number] [id number] [facility] 2020-10-26 13:40:00 2020-10-26 17:40:00 Emergency Liu Kessler [facility] [id number] [id number] [id number] 2020-10-26 13:40:00 2020-10-26 17:40:00 Emergency Liu Kessler [facility] [id number] [id number] [id number] [facility] 2020-10-26 13:40:00 2020-10-26 17:40:00 Emergency X LIU KESSLER [facility] [id number] [facility]
[2024-09-12] MEDS ORDERED: dexAMETHasone 10 MG/ML VIAL ONE (22:36)
--- NOTE | 2024-09-12 22:52 | ER ---
Nurse's Notes [facility] Name: Cristy Caceres Age: 48 yrs Sex: Female : 1975 Arrival Date: 09/12/2024 Time: 21:14 Bed 20 Private MD: Diagnosis: Unspecified contact dermatitis, unspecified cause Presentation: 09/12 21:37 Chief complaint: Patient states: DID GARDENING YESTERDAY AND NOW I HAVE A RASH ALL OVER ha1 MY BODY. 21:37 Coronavirus screen: Client denies travel out of the [place] in the last 14 days. Ebola ha1 Screen: No symptoms or risks identified at this time. Initial Sepsis Screen: Does the patient meet any 2 criteria? No. Patient's initial sepsis screen is negative. Does the patient have a suspected source of infection? No. Patient's initial sepsis screen is negative. Risk Assessment: Do you want to hurt yourself or someone else? Patient reports no desire to harm self or others. Onset of symptoms was September 12, 2024. 21:37 Method Of Arrival: Ambulatory ha1 21:37 Acuity: TWIN 4 ha1 Triage Assessment: 21:37 General: Appears uncomfortable, Behavior is calm, cooperative. Pain: Denies pain. ha1 Neuro: Level of Consciousness is awake, alert, obeys commands, Oriented to person, place, time, situation. Cardiovascular: Capillary refill < 3 seconds. Respiratory: Airway is patent Respiratory effort is even, unlabored, Respiratory pattern is regular, symmetrical. GI: No signs and/or symptoms were reported involving the gastrointestinal system. : No signs and/or symptoms were reported regarding the genitourinary system. Derm: Rash noted that is itchy, red, raised, on face, right arm, left arm and right leg. Musculoskeletal: Circulation, motion, and sensation intact. Range of motion: intact in all extremities. Historical: - Allergies: 21:37 No Known Allergies; ha1 - Home Meds: 21:37 losartan 100 mg Oral tablet [Active]; Adderall XR 30 mg Oral cp24 1 cap once daily ha1 [Active]; Lyrica 75mg Oral 1 cap twice a day [Active]; - PMHx: 21:37 back sx; Chronic pain; Hypertension; laminectomy; swelling in legs; RSD; ha1 - Immunization history:: Adult Immunizations up to date. - Infectious Disease History:: Denies. - Social history:: Smoking status: Patient denies any tobacco usage or history of. Screenin:55 [facility] ED Fall Risk Assessment (Adult) History of falling in the last 3 months, ha1 including since admission No falls in past 3 months (0 pts) Confusion or Disorientation No (0 pts) Intoxicated or Sedated No (0 pts) Impaired Gait No (0 pts) Mobility Assist Device Used No (0 pt) Altered Elimination No (0 pt) Score/Fall Risk Level 0 - 2 = Low Risk Oriented to surroundings, Maintained a safe environment, Educated pt \T\ family on fall prevention, incl call for assistance when getting out of bed, Hourly rounding (assess needs \T\ fall precautionary measures) done. Abuse screen: Denies threats or abuse. Denies injuries from another. Nutritional screening: No deficits noted. Tuberculosis screening: No symptoms or risk factors identified. Assessment: 21:51 General: Appears in no apparent distress. uncomfortable, Behavior is calm, cooperative. ay Pain: Denies pain. Neuro: Level of Consciousness is awake, alert, obeys commands, Oriented to person, place, time, situation, Speech is normal. Cardiovascular: Denies chest pain, nausea, vomiting. Respiratory: Airway is patent Respiratory effort is even, unlabored, Respiratory pattern is regular, symmetrical, Denies shortness of breath. GI: No signs and/or symptoms were reported involving the gastrointestinal system. : No signs and/or symptoms were reported regarding the genitourinary system. EENT: No signs and/or symptoms were reported regarding the EENT system. Derm: Skin rashes Rash noted that is itchy, on right femoral area and left femoral area and right leg and left arm and right arm Reports itching, Denies pain. Vital Signs: 21:37 BP 203 / 112; Pulse 94; Resp 20 S; Temp 97.9(T); Pulse Ox 97% on R/A; Weight 122.47 kg; ha1 Height 5 ft. 6 in. ; 22:46 BP 228 / 118; Pulse 86; Resp 16; Pulse Ox 97% on R/A; ay 21:37 Body Mass Index 43.58 (122.47 kg, 167.64 cm) [facility] ED Course: 21:17 Patient arrived in ED. jj6 21:24 [facility]C [facility] 21:24 Stoney Purdy MD is Attending Physician. dr5 21:37 Patient has correct armband on for positive identification. Bed in low position. Call ha1 light in reach. Side rails up X 1. 21:53 Triage completed. ha1 22:04 Scott Wright, RN is Primary Nurse. ay 23:08 Patient did not have IV access during this emergency room visit. ay Administered Medications: 22:45 Drug: Dexamethasone IM 10 mg IM once Route: IM; Site: right deltoid; ay 23:09 Follow up: Response: No adverse reaction ay Outcome: 22:51 Discharge ordered by MD. dr5 23:08 Discharged to home ambulatory, ay 23:08 Condition: stable 23:08 Discharge instructions given to patient, Instructed on discharge instructions, follow up and referral plans. Demonstrated understanding of instructions, follow-up care, medications, Prescriptions given X 3, 23:09 Patient left the ED. ay Signatures: Cristy Rios jj6 Elena Lloyd, RN RN ha1 Barney Bernal FNP-C HOME HEALTH CARE RESPIRATORY THERAPIST-Cdr5 Scott Wright RN RN ay
--- NOTE | 2024-09-12 22:52 | EDPHYS ---
Physician Documentation [facility] Name: Cristy Caceres Age: 48 yrs Sex: Female : 1975 Arrival Date: 09/12/2024 Time: 21:14 Bed 20 Private MD: ED Physician Stoney Purdy HPI: 09/13 00:47 This 48 yrs old Female presents to ER via Ambulatory with complaints of Rash. dr5 00:47 The patient's rash thought to be caused by Dermatitis. The rash is located on the body dr5 diffusely. 00:47 Patient is a 48-year-old female with history of hypertension coming in with rash all dr5 over bilateral upper arms and lower legs after working in the yard yesterday. Patient states that she has taken Benadryl that has relieved her symptoms.. Historical: - Allergies: 09/12 21:37 No Known Allergies; ha1 - Home Meds: 21:37 losartan 100 mg Oral tablet [Active]; Adderall XR 30 mg Oral cp24 1 cap once daily ha1 [Active]; Lyrica 75mg Oral 1 cap twice a day [Active]; - PMHx: 21:37 back sx; Chronic pain; Hypertension; laminectomy; swelling in legs; RSD; ha1 - Immunization history:: Adult Immunizations up to date. - Infectious Disease History:: Denies. - Social history:: Smoking status: Patient denies any tobacco usage or history of. ROS: 09/13 00:47 Constitutional: as per hpi dr5 Exam: 00:47 Constitutional: This is a well developed, well nourished patient who is awake, alert, dr5 and in no acute distress. Head/Face: Normocephalic, atraumatic. Neck: Trachea midline, no thyromegaly or masses palpated, and no cervical lymphadenopathy. Supple, full range of motion without nuchal rigidity, or vertebral point tenderness. No Meningismus. Chest/axilla: Normal chest wall appearance and motion. Nontender with no deformity. No lesions are appreciated. Cardiovascular: Regular rate and rhythm with a normal S1 and S2. Normal PMI, no JVD. No pulse deficits. Respiratory: Lungs have equal breath sounds bilaterally, clear to auscultation. No rales, rhonchi or wheezes noted. No increased work of breathing, no retractions or nasal flaring. Back: No spinal tenderness. No costovertebral tenderness. Full range of motion. MS/ Extremity: Pulses equal, no cyanosis. Neurovascular intact. Full, normal range of motion. Neuro: Awake and alert, GCS 15, oriented to person, place, time, and situation. Cranial nerves II-XII grossly intact. Motor strength 5/5 in all extremities. Sensory grossly intact. Cerebellar exam normal. Normal gait. 00:47 Skin: rash a moderate rash is noted, rash can be described as macular, papular, contact dermatitis, Vital Signs: 09/12 21:37 BP 203 / 112; Pulse 94; Resp 20 S; Temp 97.9(T); Pulse Ox 97% on R/A; Weight 122.47 kg; ha1 Height 5 ft. 6 in. ; 22:46 BP 228 / 118; Pulse 86; Resp 16; Pulse Ox 97% on R/A; ay 21:37 Body Mass Index 43.58 (122.47 kg, 167.64 cm) ha1 MDM: 21:24 Medical Screening Exam initiated dr5 09/13 00:47 Differential diagnosis: impetigo, allergic reaction, Contact Dermatitis. Data reviewed: dr5 vital signs, nurses notes. I considered the following discharge prescriptions or medication management in the emergency department Medications were administered in the Emergency Department. See MAR. Care significantly affected by the following chronic conditions: Hypertension. Care significantly affected by the following Social Determinants of Health: Poor access to healthcare and/or lack of insurance, Poor access to transportation, Problems related to employment. Counseling: I had a detailed discussion with the patient and/or guardian regarding the historical points, exam findings, and any diagnostic results supporting the discharge/admit diagnosis, the presence of at least one elevated blood pressure reading (>120/80) during this emergency department visit, the need for outpatient follow up, for definitive care, a box maker wood, a family practitioner, to return to the emergency department if symptoms worsen or persist or if there are any questions or concerns that arise at home. ED course: Gave patient dexamethasone IM in office. Patient is driving herself home back to [place]. Recommended taking Benadryl when she gets home. Prescribed steroid Dosepak, steroid cream, and Pepcid to take as needed for itching. Recommended patient follow-up with primary care doctor or dermatology this next week for worsening symptoms. Strict ER precautions given and all questions answered.. Administered Medications: 09/12 22:45 Drug: Dexamethasone IM 10 mg IM once Route: IM; Site: right deltoid; ay 23:09 Follow up: Response: No adverse reaction ay Disposition: 09/13 05:40 Co-signature as Attending Physician, Barney GOLDMAN I agree with the assessment sp4 and plan of care. I reviewed the patient's care provided by the Advanced Practice Provider and agree with the diagnosis and treatment plan. Disposition Summary: 09/12/24 22:51 Discharge Ordered Notes: Location: Home dr5 Condition: Stable dr5 Diagnosis - Unspecified contact dermatitis, unspecified cause dr5 Followup: dr5 - With: Emergency Department - When: As needed - Reason: Worsening of condition Followup: dr5 - With: Private Physician - When: 1 - 2 days - Reason: Recheck today's complaints, Continuance of care, Re-evaluation by your physician Discharge Instructions: - Discharge Summary Sheet dr5 - Contact Dermatitis dr5 Forms: - Medication Reconciliation Form dr5 - Antibiotic Education dr5 - Patient Portal Instructions dr5 - Leadership Thank You Letter dr5 Prescriptions: - Triamcinolone Acetonide 0.5 % Topical cream - apply 1 application TOPICAL route 2 times per day As needed; 1 application; dr5 Refills: 0, Product Selection Permitted - Medrol (Gabriel) 4 mg Oral Tablets, Dose Pack - take 1 tablet ORAL route as directed - follow package instructions; 1 packet; dr5 Refills: 0, Product Selection Permitted - Pepcid 20 mg Oral tablet - take 1 tablet ORAL route once daily As needed; 20 tablet; Refills: 0, Product dr5 Selection Permitted Signatures: Elena Lloyd, RN RN [email or web address] Stoney Purdy MD MD sp4 Barney Bernal FNP-C JAVA DEVELOPER ANALYST-Cdr5 Scott Wright, RN AYESHA ay
[2024-09-12 23:13] VITALS: TEMP 97.9; O2SAT 97
[2024-09-12 23:15] VITALS: BP 228/118
== END 2024-09-12 23:09 | disposition home or self-care (01) ==
LOC: ER 21:14
DX: L25.9 Unspecified contact dermatitis, unspecified cause (principal)
CPT/HCPCS: 96372; 99284; J1100

== ENCOUNTER 2024-10-09 17:27 | Inpatient (IN) | payer OTHER ==
--- OUTSIDE RECORDS SUMMARY | 2024-10-09 17:31 | XMS REPORT | Continuity of Care Document ---
Author Name Unknown Address [address] [facility] [address] [place] [address] [facility] Address [address] [facility] [address] [place] [address] Care Team Providers Care Survey Field Technician Name Role Phone Hieu Loza Primary Care Physician [phone] SUMA GONZALEZ Attending Clinician Unavailable SUMA GONZALEZ Attending Clinician Unavailable Suma Gonzalez MD Attending Clinician [phone] RADIOLOGY Attending Clinician Unavailable Radiology Attending Clinician Unavailable RAMESH BUTLER Attending Clinician Unavailable RAMESH BUTLER Attending Clinician Unavailable Migel Graham Attending Clinician MIGEL AYALA Attending Clinician Unavailab le Doctor Unassigned, [place] Attending Clinician U Symone Upton MD Attending Clinician [phone] SYMONE DEL CASTILLO Attending Clinician Unavailable DAMIAN FREEDMAN Admitting Clinician Unavailable SYMONE DEL CASTILLO Admitting Clinician Unavailable Payers Payer Name Policy Type Policy Number Effective Date Expirati on Date Source [facility] [employer] MEDICARE ADVANTAGE PPO [id number] 2023 00:00:00 [facility] [place] ST[employer] PL[place] [id number] 2020 00:00:00 [facility] MEDICARE COMPLETE CHOICE [id number] 2020 00:00:00 2021 00:00:00 Problems Condition Name Condition Details Condition Category Status Onset Date Resolution Date Last Treatment Date Treating Clinician Comments Source Right thyroid nodule Right thyroid nodule Disease Active 2-13 00:00: 00 [facility] 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 2- 00:00: 00 [facility] Allergies, Adverse Reactions, Alerts Allergy Name Allergy Type Status Severity Reaction(s) Onset Date Inactive Date Treating Clinician Comments Source NO KNOWN ALLERGIE S Drug Class Active [facility] Social History Social Habit Start Date Stop Date Quantity Comments Source [facility] to SARS-CoV-2 (event) 2021-05-30 00:00:00 2021-06-29 11:33:00 Not sure [facility] History of Social function 2021-06-29 00:00:00 2021-06-29 00:00:00 [facility] Alcoholic beverage intake 2021-06-29 00:00:00 2021-06-29 00:00:00 0 /d [facility] Alcohol intake 2016-10-19 00:00:00 2016-10-19 00:00:00 0 /d [facility] Sex assigned at 1975 00:00:00 1975 00:00:00 [facility] Smoking Status Start Date Stop Date Source Never smoked tobacco [facility] Medications Ordered Medication Name Filled Medication Name Start Date Stop Date Current Medication? Ordering Clinician Indication Dosage Frequency Signature (SIG) Comments Components Source KCL (KLOR-CON M20) tablet 40 mEq 05 11:15: 00 10-05 10:10 :00 No 40meq 40 mEq, Oral, ONCE, 1 dose, On 10/05/24 at 0615, Routine [facility] ondansetron (ZOFRAN (PF)) injection 4 mg 10-05 10:00: 00 10-05 10:01 :00 No 4mg 4 mg, Slow IV Push, ONCE, 1 dose, On 10/05/24 at 0500, Administer over 2-5 Minutes, 2 mL [facility] ampicillin- sulbactam (UNASYN) 3 g in NaCl 0.9% (NS) 100 mL MINI-BAG 10-05 09:30: 00 10-05 10:19 :00 No 3g 3 g, IV Piggyback, ONCE, 1 dose, On 10/05/24 at 0430, Administer over 30 Minutes, 100 mL, Reason for Anti-Infec tive: Documented Infection, Documented Infection Site: Skin / Soft Tissue, Duration of Therapy: Once (ED) [facility] morpHINE (4 mg/mL) injection 4 mg 10-05 09:30: 00 10-05 09:36 :00 No 4mg 4 mg, Slow IV Push, ONCE, 1 dose, On 10/05/24 at 0430, STAT [facility] hydralAZINE (APRESOLINE ) injection 20 mg 10-05 09:30: 00 10-05 09:35 :00 No 20mg 20 mg, Slow IV Push, ONCE, 1 dose, On 10/05/24 at 0430, STAT [facility] cephALEXin 500 mg capsule 10-05 00:00: 00 Yes [id number] 500mg Take 1 capsule by mouth 4 (four) times daily. [facility] ibuprofen 800 mg tablet 10-05 00:00: 00 Yes [id number] 9107 800mg Take 1 tablet by mouth every 8 (eight) hours as needed for Pain (scale 4-6). [facility] docusate sodium 250 mg capsule 10-26 00:00: 00 Yes [id number] 250mg Take 1 capsule by mouth once daily as needed for Constipati on. [facility] polyethylen e glycol 3350 (MIRALAX) 17 gram powder 10-26 00:00: 00 Yes [id number] 1{packe t} Take 1 Packet by mouth every 24 (twenty-fo ur) hours as needed for Constipati on. [facility] traMADoL 50 mg tablet 10-26 00:00: 00 Yes [id number] 50mg Take 1 tablet by mouth every 6 (six) hours as needed for Pain (scale 4-6). Indication s: acute pain [facility] pregabalin (LYRICA) 100 mg capsule 10-19 10:05: 17 Yes 100mg Take 100 mg by mouth 2 (two) times daily. [facility] triamcinolo ne acetonide 0.1 % cream 10-19 00:00: 00 Yes Apply to area(s) 2 (two) times daily. [facility] traMADOL 50 mg tablet 07-13 00:00: 00 Yes 1{tbl} Take 1 tablet by mouth as needed. [facility] ADDERALL XR 30 mg 24 hr capsule 2015-07 00:00: 00 Yes 1{capsu le} Take 1 capsule by mouth daily. [facility] Vital Signs Vital Name Observation Time Observation Value Comments S ource Systolic blood pressure 2024-10-05 10:14:00 135 mm[Hg] [facility] Diastolic blood pressure 2024-10-05 10:14:00 77 mm[Hg] [facility] Heart rate 2024-10-05 10:14:00 83 /min [facility] Body temperature 2024-10-05 10:14:00 36.44 Zoya [facility] Respiratory rate 2024-10-05 10:14:00 17 /min [facility] Oxygen saturation in Arterial blood by Pulse oximetry 2024-10-05 10:14:00 96 /min [facility] Body height 2024-10-05 09:06:00 167.6 cm [facility] Body weight 2024-10-05 09:06:00 122.471 kg [facility] BMI 2024-10-05 09:06:00 43.58 kg/m2 [facility] Systolic blood pressure 2021-06-29 17:41:00 167 mm[Hg] [facility] Diastolic blood pressure 2021-06-29 17:41:00 105 mm[Hg] [facility] Heart rate 2021-06-29 17:41:00 92 /min [facility] Body weight 2021-06-29 17:40:00 133.312 kg [facility] BMI 2021-06-29 17:40:00 47.44 kg/m2 [facility] Body height 2021-06-29 17:40:00 167.6 cm [facility] Procedures Procedure Date / Time Performed Performing Clinicia n Source COMP. METABOLIC PANEL (23005) 2024-10-05 09:28:00 Suma Gonzalez [facility] CBC WITH DIFF 2024-10-05 09:28:00 Suma Gonzalez [facility] Encounters Start Date/Time End Date/Time Encounter Type Admission Type Attending Clinicians Care Facility Care Department Encounter ID Source 2024-10-05 04:04:00 2024-10-05 05:37:00 Emergency X SUMA GONZALEZ WAKILI [facility] ERT [id number] [facility] 2024-10-05 04:04:00 2024-10-05 05:37:00 Emergency Suma Gonzalez [facility] [id number] 350.1.13.10 [id number] [id number] [facility] 2023-10-03 00:00:00 2023-10-03 00:00:00 Outpatient R RADIOLOGY [facility] [id number] [facility] 2023-07-12 00:00:00 2023-07-12 00:00:00 Outpatient R RADIOLOGY [facility] [id number] [facility] 2022-05-13 16:49:55 2022-05-13 23:59:00 Outpatient R RADIOLOGY [facility] [id number] [facility] 2022-05-13 16:49:55 2022-05-13 23:59:00 Hospital Encounter Radiology [facility] 1.2.840.114 350.1.13.10 4.2.7.2.686 [id number] [facility] 2021-06-29 12:00:00 2021-06-29 23:59:00 Outpatient R RAMESH BUTLER PATRICK [facility] [id number] [facility] 2021-06-29 12:00:00 2021-06-29 23:59:00 Hospital Encounter Ramesh Butler [facility] [id number] 350.1.13.10 4.2.7.2.686 [id number] [facility] 2021-06-29 11:30:00 2021-06-29 12:00:00 Office Visit Ramesh Butler Shanna C [facility] 1.2.840.114 350.1.13.10 4.2.7.2.686 [id number] [facility] 2021-06-29 11:30:00 2021-06-29 11:30:00 Outpatient MIGEL ELLIS [facility] [id number] [facility] 2021-06-29 00:00:00 2021-06-29 00:00:00 Orders Only Doctor Unassigned, [place] [facility] [id number] 350.1.13.10 4.2.7.2.686 [id number] [facility] 2021-06-03 00:00:00 2021-06-03 00:00:00 Patient Secure Msg Doctor Unassigned, [place] [facility] 1.2.840.114 350.1.13.10 4.2.7.2.686 [id number] [facility] 2021-05-25 00:00:00 2021-05-25 00:00:00 Orders Only Doctor Unassigned, [place] [facility] 1.2.840.114 350.1.13.10 4.2.7.2.686 [id number] [facility] 2020-10-26 13:40:00 2020-10-26 17:40:00 Emergency Symone Del Castillo [facility] 1.2.840.114 350.1.13.10 4.2.7.2.686 [id number] 2020-10-26 13:40:00 2020-10-26 17:40:00 Emergency Symone Del Castillo [facility] [id number] 350.1.13.10 4.2.7.2.686 [id number] [facility] 2020-10-26 13:40:00 2020-10-26 17:40:00 Emergency X SYMONE DEL CASTILLO [facility] ERT [id number] [facility] Notes Date/Time Note Provider Source 2024-10-05 05:35:28 Pt given printed and verbal discharge instructions regarding cellulitis, hypokalemia, uncontrolled hypertension, left foot pain, venous stasis dermatitis of both lower extremeties. Prescriptions provided Pt verbalized understanding of instructions, pt awake alert oriented, resp reg unlabored, skin w/d, color appropriate for race, moves all ext well,pt encouraged to follow up with pcp and or specialist. Advised to seek medical attention for new/prolonged/worsening of symptoms. No adverse reaction to meds given in ER noted upon discharge PIV d'cd, dressing to site, catheter in tact. Awake, alert oriented, resp reg unlabored, skin w/d, pt leaving amb with steady gait, in no apparent distress. Raven Valadez RN [facility] 2024-10-05 04:04:51 CC: LLE pain for 1 week, tender, red, warm to the touch and tight. Patient seen PCP two weeks ago, but leg was not this swollen. 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 Pain is described as a burning sensation X 1 week. Denies any trauma or injury. No fever or chills. Pt has not taken her oral antihypertensive for a "long time". 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 Foot Pain Location: Foot Time since incident: 7 days Injury: no Foot location: L foot Pain details: Quality: Aching and burning Radiates to: Does not radiate Severity: Severe Onset quality: Gradual Duration: 7 days Timing: Sporadic Progression: Worsening Chronicity: Recurrent Dislocation: no Foreign body present: No foreign bodies Prior injury to area: No Relieved by: Nothing Worsened by: Activity and bearing weight Ineffective treatments: None tried Associated symptoms: no back pain, no decreased ROM, no fatigue, no fever, no itching, no muscle weakness, no neck pain, no numbness, no stiffness, no swelling and no tingling Risk factors: obesity Risk factors: no concern for non-accidental trauma, no frequent fractures, no known bone disorder and no recent illness Past Medical History/Immunizations: Past Medical History: Diagnosis Date History of back surgery Urine incontinence HTN Tetanus received in last 5 years: No Allergies: No Known Allergies Past Social History: Tobacco Use Never Past Surgical History: Past Surgical History: Procedure Laterality Date BACK SURGERY TUBAL LIGATION Breast Augmentation Review of Systems: Review of Systems Constitutional: Negative. Negative for diaphoresis, fatigue and fever. HENT: Negative. Eyes: Negative. Respiratory: Negative. Breasts: Negative. Cardiovascular: Negative. Gastrointestinal: Negative. Genitourinary: Negative. Musculoskeletal: Negative. Negative for back pain, neck pain and stiffness. Skin: Negative. Negative for itching. Neurological: Negative. Psychiatric/Behavioral: Negative. All other systems reviewed and are negative. Endocrine: Endocrine negative Physical Exam: ED Triage Vitals [10/05/24 0406] Weight 122.5 kg (270 lb) Actual or estimated Actual Height 1.676 m (5' 6") BP (!) 248/132 Pulse 96 Resp 20 Temp 36.9 ?C (98.4 ?F) Temp source Oral SpO2 93 % Measured on Room air Physical Exam Vitals and nursing note reviewed. Constitutional: General: She is not in acute distress. Appearance: Normal appearance. She is well-developed. She is obese. She is not ill-appearing, toxic-appearing or diaphoretic. HENT: Head: Normocephalic and atraumatic. Right Ear: External ear normal. Left Ear: External ear normal. Nose: Nose normal. No congestion or rhinorrhea. Mouth/Throat: Mouth: Mucous membranes are moist. Pharynx: Oropharynx is clear. No oropharyngeal exudate or posterior oropharyngeal erythema. Eyes: General: No scleral icterus. Right eye: No discharge. Left eye: No discharge. Extraocular Movements: Extraocular movements intact. Conjunctiva/sclera: Conjunctivae normal. Pupils: Pupils are equal, round, and reactive to light. Neck: Thyroid: No thyromegaly. Cardiovascular: Rate and Rhythm: Normal rate and regular rhythm. Heart sounds: Normal heart sounds. No murmur heard. Pulmonary: Effort: Pulmonary effort is normal. No respiratory distress. Breath sounds: Normal breath sounds. No stridor. No wheezing, rhonchi or rales. Chest: Chest wall: No tenderness. Abdominal: General: Bowel sounds are normal. There is no distension. Palpations: Abdomen is soft. There is no mass. Tenderness: There is no abdominal tenderness. There is no right CVA tenderness, left CVA tenderness, guarding or rebound. Hernia: No hernia is present. Musculoskeletal: General: Swelling present. No tenderness or deformity. Normal range of motion. Cervical back: Normal range of motion and neck supple. No rigidity or tenderness. Left lower leg: Edema present. Lymphadenopathy: Cervical: No cervical adenopathy. Skin: General: Skin is warm and dry. Capillary Refill: Capillary refill takes less than 2 seconds. Coloration: Skin is not jaundiced. Findings: Erythema present. No bruising, lesion or rash. Comments: Has chronic stasis changes to bilateral lower legs Neurological: General: No focal deficit present. Mental Status: She is alert and oriented to person, place, and time. Cranial Nerves: No cranial nerve deficit. Sensory: No sensory deficit. Motor: No weakness or abnormal muscle tone. Coordination: Coordination normal. Gait: Gait normal. Deep Tendon Reflexes: Reflexes normal. Psychiatric: Behavior: Behavior normal. Thought Content: Thought content normal. Judgment: Judgment normal. Radiology: No orders to display Lab Results: Lab Results CBC WITH DIFF - Abnormal Result Value Ref Range WBC 10.20 4.30 - 11.10 10*3/?L RBC 5.51 (*) 3.93 - 5.25 10*6/?L HGB 14.7 11.6 - 15.0 g/dL HCT 46.0 (*) 35.7 - 45.2 % MCV 83.5 80.6 - 95.5 fL MCH 26.7 25.9 - 32.8 pg MCHC 32.0 31.6 - 35.1 g/dL RDW-SD 46.8 39.0 - 49.9 fL RDW-CV 15.6 (*) 12.0 - 15.5 % PLT 339 166 - 358 10*3/?L MPV 9.4 (*) 9.5 - 12.9 fL NRBC/100 WBC 0.0 0.0 - 10.0 /100 WBCs NRBC x10 3 <0.01 10*3/?L GRAN MAT (NEUT) % 70.1 % IMM GRAN % 0.30 % LYMPH % 20.9 % MONO % 6.5 % EOS % 1.7 % BASO % 0.5 % GRAN MAT x10 3 (ANC) 7.16 (*) 1.88 - 7.09 10*3/uL IMM GRAN x10 3 0.03 0.00 - 0.06 10*3/uL LYMPH x10 3 2.13 1.32 - 3.29 10*3/uL MONO x10 3 0.66 0.33 - 0.92 10*3/uL EOS x10 3 0.17 0.03 - 0.39 10*3/uL BASO x10 3 0.05 0.01 - 0.07 10*3/uL COMP. METABOLIC PANEL (88125) - Abnormal NA 137 135 - 145 mmol/L K 3.1 (*) 3.5 - 5.0 mmol/L CL 98 98 - 108 mmol/L CO2 TOTAL 33 (*) 23 - 31 mmol/L AGAP 6 2 - 16 BUN 18 7 - 23 mg/dL GLUCOSE 139 (*) 70 - 110 mg/dL CREATININE 0.93 0.50 - 1.04 mg/dL TOTAL BILI 0.5 0.1 - 1.1 mg/dL CALCIUM 9.2 8.6 - 10.6 mg/dL T PROTEIN 8.0 6.3 - 8.2 g/dL ALBUMIN 4.2 3.5 - 5.0 g/dL ALK PHOS 130 (*) 34 - 122 U/L ALTv 23 5 - 35 U/L AST(SGOT) 22 13 - 40 U/L eGFR 74.6 mL/min/1.73m2 BLOOD CULTURE SCREEN BLOOD CULTURE SCREEN Orders and Treatments: Orders Placed This Encounter Procedures Cbc with Diff Comp. Metabolic Panel (14819) Blood Culture Screen Blood Culture Screen Orders Placed This Encounter Medications hydralAZINE (APRESOLINE) injection 20 mg morpHINE (4 mg/mL) injection 4 mg ampicillin-sulbactam (UNASYN) 3 g in NaCl 0.9% (NS) 100 mL MINI-BAG ondansetron (ZOFRAN (PF)) injection 4 mg KCL (KLOR-CON M20) tablet 40 mEq cephALEXin 500 mg capsule ibuprofen 800 mg tablet First Provider Eval: ED Events None ED COURSE Diagnosis/Impression as of 10/05/24 0528 Cellulitis of left foot Hypokalemia Uncontrolled hypertension Noncompliance with medication regimen Left foot pain Venous stasis dermatitis of both lower extremities Procedures: Procedures MDM: Medical Decision Making Cristy Aguillon is a 49 year old female who presents to the ED with recurrent left foot pain. Current episode began about one week ago. No trauma Problems Addressed: Cellulitis of left foot: acute illness or injury Hypokalemia: acute illness or injury Left foot pain: chronic illness or injury Noncompliance with medication regimen: chronic illness or injury Uncontrolled hypertension: chronic illness or injury Venous stasis dermatitis of both lower extremities: chronic illness or injury Amount and/or Complexity of Data Reviewed Labs: ordered. Decision-making details documented in ED Course. Risk OTC drugs. Prescription drug management. Parenteral controlled substances. Flowsheet Documentation: Scoring Tools: No data recorded Disposition/Condition: ED Disposition ED Disposition Discharge Condition Stable Comment -- Discharge Medications: Patient's Medications START taking these medications CEPHALEXIN 500 MG CAPSULE Take 1 capsule by mouth 4 (four) times daily. IBUPROFEN 800 MG TABLET Take 1 tablet by mouth every 8 (eight) hours as needed for Pain (scale 4-6). CONTINUE taking these medications which have NOT CHANGED ADDERALL XR 30 MG 24 HR CAPSULE Take 1 capsule by mouth daily. DOCUSATE SODIUM 250 MG CAPSULE Take 1 capsule by mouth once daily as needed for Constipation. POLYETHYLENE GLYCOL 3350 (MIRALAX) 17 GRAM POWDER Take 1 Packet by mouth every 24 (twenty-four) hours as needed for Constipation. PREGABALIN (LYRICA) 100 MG CAPSULE Take 100 mg by mouth 2 (two) times daily. TRAMADOL 50 MG TABLET Take 1 tablet by mouth as needed. TRAMADOL 50 MG TABLET Take 1 tablet by mouth every 6 (six) hours as needed for Pain (scale 4-6). Indications: acute pain TRIAMCINOLONE ACETONIDE 0.1 % CREAM Apply to area(s) 2 (two) times daily. 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
[2024-10-09] MEDS ORDERED: MORPHINE 2 MG/ML SYR IV PRN (18:25)
[2024-10-09] MEDS ORDERED: ONDANSETRON 4 MG/2 ML VIAL IV PRN (18:25)
[2024-10-09] MEDS: METOPROLOL TAR 50 MG TAB PO SCH (20:36)
[2024-10-09] MEDS: AMLODIPINE 5 MG TAB PO ONE (20:36)
[2024-10-09] MEDS: lisinopriL 5 MG TAB PO SCH (20:37)
[2024-10-09] MEDS: DOXYCYCLINE 100 MG in NA CHLORIDE 0.9% 100 ML IVPB SCH (20:37)
[2024-10-09 21:33] VITALS: BMI 44.6
[2024-10-09 21:33] LABS: Absolute Basophils 0.1 K/uL (0-0.5); Absolute Eosinophils 0.2 K/uL (0-0.5); Absolute Lymphocytes (CBC) 2.2 K/uL (0.7-4.9); Absolute Monocytes 0.5 K/uL (0.1-1.3); Absolute Neutrophil 5.7 K/uL (1.8-8.0); Basophils % 0.9 % (0-1.3); Eosinophils % 2.3 % (0-4.4); Lymphocytes % 25.1 % (15.3-44.8); MCH 27.8 pg (27.0-35.0); MCHC 34.2 g/dL (32.0-36.0); MCV 81.3 fL (80-100); MPV 7.9 fL (7.6-11.3); Monocytes % 5.9 % (3.3-12.3); Neutrophils % 65.8 % (41.7-73.7); Nucleated Red Blood Cells % 0.2 % (0-0); Platelets 290 thou/uL (152-406); RBC Red Blood Cell Count 5.05 M/uL (3.86-4.86); Red Cell Distribution Width 16.5 % (12.1-15.2)
[2024-10-09 21:43] LABS: Albumin 2.3 g/dL (3.4-5.0); Albumin/Globulin Ratio 0.7 (1.1-1.8); Anion Gap 7.9 mEq/L (5.0-15.0); Bilirubin Total 0.4 mg/dL (0.2-1.0); Globulin 3.5 g/dL (2.3-3.5); Protein, Total 5.8 g/dL (6.4-8.2); Thyroid Stimulating Hormone 1.39 uIU/mL (0.358-3.740)
[2024-10-09 21:44] LABS: Magnesium 1.7 mg/dL (1.6-2.4); Potassium 2.9 mEq/L (3.5-5.1)
--- NOTE | 2024-10-09 21:50 | RAD REPORT ---
EXAMINATION: US Extrem Venous W Compress Sadi CLINICAL INDICATION: [facility] MAIN leg edema, rule out DVT Y TECHNIQUE: Complete bilateral duplex sonography of the BILATERAL lower extremity veins was performed. The examination included compression for vein patency, color Doppler imaging and flow augmentation in response to distal compression of the distal external iliac, common femoral, femoral, popliteal, t ibial, and great and small saphenous veins. COMPARISON: No prior exam. FINDINGS: Duplex sonography testing of the veins of the BILATERAL lower extremity was performed. Color flow maikel ging shows all veins to be compressible with [id number] color filling. Pulsatile and phasic flow is present within all lower extremity deep and superficial veins examined. IMPRESSION: There is no deep vein or superficial vein thrombosis.
[2024-10-09] MEDS: PIPER TAZO 3.375 GM in NA CHLORIDE 0.9% 100 ML IV SCH (22:20)
[2024-10-09] MEDS: ENOXAPARIN 40 MG/0.4 ML SQ SCH (22:22)
[2024-10-09] MEDS: DIPHENHYDRAMINE 25 MG TAB/CAP PO PRN (23:37)
[2024-10-09] MEDS: POTASSIUM CL SA 10 MEQ TAB PO ONE (23:38)
[2024-10-09] MEDS: cloNIDine HCL 0.1 MG TAB PO PRN (23:46)
[2024-10-10 00:39] VITALS: O2SAT 96
[2024-10-10] MEDS: PIPER TAZO 3.375 GM in NA CHLORIDE 0.9% 100 ML IV SCH (05:52)
[2024-10-10 06:09] LABS: Anion Gap 6.6 mEq/L (5.0-15.0); Potassium 3.6 mEq/L (3.5-5.1)
--- NOTE | 2024-10-10 06:55 | HP ---
Date of Admission: 10/09/2024 Chief Complaint: Left leg pain. History Of Present Illness: This is a 49-year-old female patient who recently started to see joão chakraborty into office today with about 5-7 days history of left leg pain. The patient denies any fall or inj ury. No fever. No chills. The patient has mild bilateral leg swelling for a long time and says jose alejandro t in last 2 weeks that she has had some pain in the left leg, but in last 1 week, it has gotten lot w orse compared to before. Her pain gets worse with standing or walking and better when she is keeping it elevated. She was seen in the emergency room for this on 10/05/2024, was evaluated, was given mo rphine in the emergency room and was sent home with cephalexin, which she is not taking it as prescri bed. Today, she came to office with these complaints. After I evaluated her, decision was made to a dmit her to hospital. The patient is not compliant with her therapy including not taking this antibi otic as prescribed and also when I saw her for initial office visit about 3 weeks ago, her blood pres sure was extremely high, she was started on metoprolol and unfortunately she is not taking that as pr escribed either. Allergies: NO KNOWN ALLERGIES. Medications: Metoprolol 50 mg 2 times a day. Review of Systems: Dermatology: As mentioned above. Cardiovascular: As mentioned above. All other systems reviewed and negative. Past Medical History: Significant for thyroid nodule, hypertension, chronic leg edema, neurogenic bl adder, RSD, breast implant with rupture of the right breast implant, chronic back pain with herniated disk in the lower back, prior history of constipation, and diarrhea. Past Surgical History: Biopsy for the thyroid nodule, which was benign on 03/09/2016, tubal ligation , back surgery, skin biopsy on 03/09/2016, by Dr. Lorenzo and it was negative for vasculitis and hugo st augmentation. Family History: Father , details unknown. Mother has history of hypertension, coronary artery d isease, and restless legs syndrome. Brother is alive and well. Social History: Negative for smoking, use of alcohol occasional. Physical Examination: VITAL SIGNS: Today, when the patient came in, blood pressure initially was 220/140 and repeat blood pressure before she left the office was 220/128. Pulse 96, temperature 98.4, respiratory rate 17, we ight 277 pounds, height 66 inches. General: Awake, alert, oriented, not in distress. HEENT: Head atraumatic, normocephalic. Conjunctivae nonerythematous. Sclerae white. Mouth, no thr ush or edema noted. Ears/Nose, no mass, lesion, discharge noted. Neck: Supple. No JVD, lymph nodes, bruit, thyromegaly noted. Lungs: Bilateral good equal air entry. Clear to auscultation. No rhonchi. No rales. Heart: Normal heart sounds, no murmur or gallop. Abdomen: Soft, bowel sounds normal. No guarding, rigidity, tenderness, mass, hepatosplenomegaly, dis tention, or bruit noted. Extremities: Bilateral leg exam shows trace edema of the right leg and there is no pitting edema. L eft leg has grade 1 edema again, not pitting and has pink, warm, tender skin involving lower 1/4th of the left lower anteromedial leg. There is no open wound. Skin: No rash, ulcer, cellulitis. Lymphatics: No lymph node enlargement in neck, supraclavicular, infraclavicular region. Neuro: No focal neurological deficit. Chest: Unremarkable. External Genitalia: Deferred. Rectal: Deferred. Laboratory Data: WBC , hemoglobin , platelets . Sodium , po tassium , chloride , bicarb , BUN , creatinine , glucose . Liver function tests , TSH . Impression: 1. Cellulitis, left leg. 2. Lymphedema, bilateral legs. 3. Hypertension, uncontrolled. 4. Morbid obesity. 5. Impaired fasting glucose. 6. Hyperlipidemia. Plan: We will go ahead and admit the patient to hospital for further evaluation and management of th is problem. The patient is appropriate for inpatient and is expected to spend 2 midnights in the [facility]. We will go ahead and start the patient on empiric antibiotic, which is doxycycline and Zosyn. For hypertension, when patient left my office after making arrangements for direct admission to the hospital instead of going directly to the hospital, she needed to go home to take care of certain th ings, so she was advised to take her metoprolol 50 mg dose right away as soon as she goes home sophia nguyen she had not taken her blood pressure pill today at all. We will continue metoprolol 50 mg 2 times a day. Add additional antihypertensive medication to start with. We will add amlodipine and lisinop ril and then monitor blood pressure and make adjustment on medication as it becomes necessary. I maciej e communicated with her in detail today regarding importance of controlling blood pressure. Goal is to get her blood pressure less than 130/80, if at all possible all the time to reduce future risk of cardiovascular complications like stroke, heart attack, congestive heart failure, blindness, renal fa ilure, which will require her to go on dialysis, etc. No need for further intervention of hyperlipid emia at this time. Decision will be made regarding treatment depending on her cholesterol level. Fo r chronic leg edema, which she has I suspect, she probably has lymphedema on basis of the appearance of her leg and no need for further intervention on it. I have ordered echocardiogram to evaluate lef t ventricular ejection fraction and a venous Doppler on her lower extremities. Impaired fasting gluc ose, will not require any further intervention except diet control, exercise and weight loss. Total time spent today was 80 minutes including evaluation and management performed today, review of prior office visit record from 3 weeks ago, making arrangements for hospital admission. The patient' s potassium was low upon initial lab results today, which we will replace that per order. BREONNA/MODL Voice ID: [id number]
[2024-10-10] MEDS: FLU (Fluarix Triv) TS24-25(6MOS UP)/PF 45 MCG/0.5 ML Syringe IM ONE (08:00)
[2024-10-10] MEDS: POTASSIUM CL SA 10 MEQ TAB PO ONE (08:26)
[2024-10-10] MEDS: AMLODIPINE 10 MG TAB PO SCH (08:26)
[2024-10-10] MEDS: lisinopriL 10 MG TAB PO SCH (08:27)
--- NOTE | 2024-10-10 19:54 | PN ---
Date of Progress Note: 10/10/2024 Subjective: The patient was seen this morning for followup. No new complaints or problems reported by patient. Lying in bed, not in any distress. Objective: Vital Signs: Reviewed. HEENT: Unremarkable. Lungs: Clear to auscultation. Heart: Sounds normal. Abdomen: Soft. Bowel sounds normal. No guarding, rigidity, tenderness, distention. Extremities: Leg edema remains unchanged and left leg area cellulitis remains unchanged from yesterd ay. Impression: 1. Cellulitis, left leg. 2. Hypertension, uncontrolled. Plan: We will go ahead and continue current antibiotic which is doxycycline and Zosyn. The patient' s potassium was low which was corrected yesterday. For blood pressure, we will continue metoprolol 5 0 mg 2 times a day. She received 1 dose of amlodipine 5 mg last night. Starting this morning, we wi ll go ahead and give her amlodipine 10 mg daily. Continue metoprolol 50 mg twice a day and we will a lso start her on lisinopril 10 mg twice a day. The patient did receive lisinopril 5 mg dose last nig ht. We will get an echo with Doppler today and we will see her tomorrow for followup. Her venous Do ppler of both lower extremities was negative for DVT. BREONNA/MODL Voice ID: [id number] Report ID: [id number]
--- NOTE | 2024-10-11 07:05 | ECHO ---
HEIGHT: 5 ft 6 in WEIGHT: 277 lb 0 oz DATE OF STUDY: 10/10/[address]: Hieu Loza MD 2-DIMENSIONAL: YES M.MODE: YES DOPPLER: YES COLOR FLOW: YES TDS: PORTABLE: YES DEFINITY: BUBBLE STUDY: DIAGNOSIS: HYPERTENSION CARDIAC HISTORY: CATHERIZATION: SURGERY: PROSTHETIC VALVE: PACEMAKER: MEASUREMENTS (cm) DIASTOLIC (NORMALS) SYSTOLIC (NORMALS) IVSd 1.4 (0.6-1.2) LA Diam 3.1 (1.9-4.0) LVEF 60-65% LVIDd 3.7 (3.5-5.7) LVIDs 2.5 (2.0-3.5) %FS 34% LVPWd 1.3 (0.6-1.2) Ao Diam 2.9 (2.0-3.7) 2 DIMENSIONAL ASSESSMENT: RIGHT ATRIUM: NORMAL LEFT ATRIUM: NORMAL RIGHT VENTRICLE: NORMAL LEFT VENTRICLE: MILD LEFT VENTRICULAR HYPERTROPHY TRICUSPID VALVE: TRACE TRICUSPID REGURGITATION MITRAL VALVE: NORMAL PULMONIC VALVE: NORMAL AORTIC VALVE: NORMAL PERICARDIAL EFFUSION: NONE AORTIC ROOT: NORMAL LEFT VENTRICULAR WALL MOTION: NORMAL DOPPLER/COLOR FLOW: NORMAL COMMENTS: 1. NORMAL LEFT VENTRICULAR SYSTOLIC FUNCTION, EJECTION FRACTION 60-65%, NORMAL WALL MOTION 2. NORMAL DIASTOLIC FUNCTION TECHNOLOGIST: HITESH JUAREZ
[2024-10-11] MEDS: ACETAMINOPHEN 500 MG TAB PO PRN (08:40)
[2024-10-11 10:37] VITALS: BP 187/74; TEMP 97.9
--- NOTE | 2024-10-11 11:55 | DS ---
Date of Discharge: 10/11/2024 Disposition: Discharged to go home. Physical Examination: Vital Signs: Today, temperature 98.1, pulse 72, respiratory rate 16, blood pressure 144/74, oxygen s aturation 96%. Laboratory Data: Upon admission, WBC 8.7, hemoglobin 14, platelets 290. Sodium 142, potassium 2.9, chloride 111, bicarb 26, BUN 9, creatinine 0.57, glucose 111, A1c 6.3. Liver function tests unremark able. TSH 1.390. Yesterday, sodium 140, potassium 3.6, chloride 106, bicarb 31, BUN 12, creatinine 0.91, glucose 132, triglyceride 60, total cholesterol 126, LDL 71, HDL 43. Hospital Course: This is a 49-year-old female patient, who recently started seeing me and her blood pressure was extremely high at office, so she was started on metoprolol 50 mg 2 times a day, which un fortunately she has not been taking it. She does not have any symptoms related to her high blood pre ssure. The patient came into office with left leg pain and after she was evaluated, decision was [facility] to admit her to hospital. Her blood pressure at office was 220/140 and repeat blood pressure was 2 20/128. Pulse rate was 96 at that time. Arrangements were made for the patient to be admitted to [facility] and she was noted to have cellulitis of left leg. The patient has trace bilateral known p itting edema, which I noted it during first visit and at the time of admission, right leg edema remai ns unchanged, but left leg had more leg swelling along with cellulitis. There was no open wound. [facility] patient was started on IV Zosyn and oral doxycycline and she responded very well to this treatment. Her left leg pain has improved. Area of cellulitis has started to show improvement. For her hyper tension, we initially added amlodipine 5 mg and 1 time dose was given night of admission along with l isinopril 5 mg twice a day starting night of admission and as of yesterday, we increased amlodipine t o 10 mg daily and lisinopril 10 mg twice a day and she has responded very well as we can see with imp rovement in her blood pressure readings. This morning when I saw her, she was feeling fine. No new complaints or problems reported and the patient feels like she is ready to go home. Medically, she i s stable for discharge. I have advised her to make sure to take her medications regularly as she was not taking her antihypertensive medication as prescribed. Discharge Medications And Instructions: 1. Continue metoprolol 50 mg 2 times a day. 2. Start amlodipine 10 mg daily in morning with breakfast. 3. Start lisinopril 10 mg 2 times a day. 4. Start doxycycline 100 mg 2 times a day with food for 10 days. 5. Start Augmentin 875 mg 2 times a day with food for 10 days. 6. Follow up at my office next week. Final Diagnoses: 1. Cellulitis, left leg. 2. Lymphedema, bilateral legs. 3. Hypertension, uncontrolled. 4. Hypokalemia. 5. Morbid obesity. 6. Impaired fasting glucose. 7. Hyperlipidemia. Total time spent today 45 minutes. BREONNA/TATIANA Voice ID: [id number] Report ID: [id number]
== END 2024-10-11 12:49 | disposition home or self-care (01) | DRG 603 ==
LOC: 2ND 17:27
PROVIDERS: ADMIT Internal Medicine; ATTEND Internal Medicine
DX: L03.116 Cellulitis of left lower limb (principal); Z68.41 Body mass index [BMI] 40.0-44.9, adult; I10 Essential (primary) hypertension; I89.0 Lymphedema, not elsewhere classified; R73.02 Impaired glucose tolerance (oral); E66.01 Morbid (severe) obesity due to excess calories; E78.5 Hyperlipidemia, unspecified; N31.9 Neuromuscular dysfunction of bladder, unspecified; M51.27 Other intervertebral disc displacement, lumbosacral region; Z91.148 Patient's other noncompliance with medication regimen for other reason; Z82.49 Family history of ischemic heart disease and other diseases of the circulatory system
CPT/HCPCS: 36415; 80048; 80053; 80061; 83036; 83735; 84443; 85025; 93306; 93970; J1650; J2543

== ENCOUNTER 2024-11-10 12:26 | Emergency (ER) | payer OTHER ==
--- OUTSIDE RECORDS SUMMARY | 2024-11-10 12:29 | XMS REPORT | Continuity of Care Document ---
Author Name Unknown Address [address] [facility] [address] [place] [address] [facility] Address [address] [facility] [address] [place] [address] Care Team Providers Care Lab Assistant Name Role Phone Sarah Stein MD, Adan Am[facility] Torres CUI Attending Clinician [phone]- [phone] TORRES DAVENPORT Attending Clinician Unavail able SUMA GONZALEZ Attending Clinician Unavailable SUMA GONZALEZ Attending Clinician Unavailable Suma Gonzalez MD Attending Clinician [phone] RADIOLOGY Attending Clinician Unavailable Radiology Attending Clinician Unavailable RAMESH BUTLER Attending Clinician Unavailable RAMESH BUTLER Attending Clinician Unavailable Migel Graham Attending Clinician MIGEL AYALA Attending Clinician Unavailab le Doctor Unassigned, [place] Attending Clinician U Symone Upton MD Attending Clinician [phone] SYMONE DEL CASTILLO Attending Clinician Unavailable DAMIAN FREEDMAN Admitting Clinician Unavailable SYMONE DEL CASTILLO Admitting Clinician Unavailable Payers Payer Name Policy Type Policy Number Effective Date Expirati on Date Source [employer] Medicare [id number] 2024 00:00:00 [employer] MEDICARE ADVANTAGE PPO [id number] 2023 00:00:00 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 History of Social function 2021-06-29 00:00:00 2021-06-29 00:00:00 [facility] Alcoholic beverage intake 2021-06-29 00:00:00 2021-06-29 00:00:00 0 /d [facility] Alcohol intake 2016-10-19 00:00:00 2016-10-19 00:00:00 0 /d [facility] Sex assigned at 1975 00:00:00 1975 00:00:00 [facility] Smoking Status Start Date Stop Date Source Tobacco smoking consumption unknown [facility] Tony Sebastian c Never smoked tobacco [facility] Medications Ordered Medication Name Filled Medication Name Start Date Stop Date Current Medication? Ordering Clinician Indication Dosage Frequency Signature (SIG) Comments Components Source methylPREDN ISolone (Medrol Dospak) 4 MG tablets methylPREDN ISolone (Medrol Dospak) 4 MG tablets 10-28 00:00: 00 11-04 23:59 :00 No Follow schedule on package gerald Gomez KCL (KLOR-CON M20) tablet 40 mEq 10-05 11:15: 00 10-05 10:10 :00 No 40meq 40 mEq, Oral, ONCE, 1 dose, On 10/05/24 at 0615, Routine [facility] ondansetron (ZOFRAN (PF)) injection 4 mg 10-05 10:00: 00 10-05 10:01 :00 No 4mg 4 mg, Slow IV Push, ONCE, 1 dose, On 10/05/24 at 0500, Administer over 2-5 Minutes, 2 mL [facility] ampicillin- sulbactam (UNASYN) 3 g in NaCl 0.9% (NS) 100 mL MINI-BAG 10-05 09:30: 00 10-05 10:19 :00 No 3g 3 g, IV Piggyback, ONCE, 1 dose, On 10/05/24 at 0430, Administer over 30 Minutes, 100 mL, Reason for Anti-Infec tive: Documented Infection, Documented Infection Site: Skin / Soft Tissue, Duration of Therapy: Once (ED) [facility] morpHINE (4 mg/mL) injection 4 mg 10-05 09:30: 00 10-05 09:36 :00 No 4mg 4 mg, Slow IV Push, ONCE, 1 dose, On 10/05/24 at 0430, STAT [facility] hydralAZINE (APRESOLINE ) injection 20 mg 10-05 09:30: 10-05 09:35 :00 No 20mg 20 mg, Slow IV Push, ONCE, 1 dose, On 10/05/24 at 0430, STAT [facility] cephALEXin 500 mg capsule 10-05 00:00: 00 Yes [id number] 500mg Take 1 capsule by mouth 4 (four) times daily. [facility] ibuprofen 800 mg tablet 10-05 00:00: 00 Yes [id number] 9107 800mg Take 1 tablet by mouth every 8 (eight) hours as needed for Pain (scale 4-6). [facility] docusate sodium 250 mg capsule 10-26 00:00: 00 Yes [id number] 250mg Take 1 capsule by mouth once daily as needed for Constipati on. [facility] polyethylen e glycol 3350 (MIRALAX) 17 gram powder 10-26 00:00: 00 Yes [id number] 1{packe t} Take 1 Packet by mouth every 24 (twenty-fo ur) hours as needed for Constipati on. [facility] traMADoL 50 mg tablet 10-26 00:00: 00 Yes [id number] 50mg Take 1 tablet by mouth every 6 (six) hours as needed for Pain (scale 4-6). Indication s: acute pain [facility] pregabalin (LYRICA) 100 mg capsule 10-19 10:05: 17 Yes 100mg Take 100 mg by mouth 2 (two) times daily. [facility] triamcinolo ne acetonide 0.1 % cream 10-19 00:00: 00 Yes Apply to area(s) 2 (two) times daily. [facility] traMADOL 50 mg tablet 07-13 00:00: 00 Yes 1{tbl} Take 1 tablet by mouth as needed. [facility] ADDERALL XR 30 mg 24 hr capsule 2015-07 00:00: 00 Yes 1{capsu le} Take 1 capsule by mouth daily. [facility] amphetamine -dextroamph etamine XR (Adderall XR) 30 MG 24 hr capsule amphetamine -dextroamph etamine XR (Adderall XR) 30 MG 24 hr capsule 2014-07 00:00: 00 Yes 30mg 30 mg = 1 cap, PO, Daily, # 30 cap, 0 Refill(s) Nancy Jimenez [facility] Vital Signs Vital Name Observation Time Observation Value Comments S evelio Systolic blood pressure 2024-10-05 10:14:00 135 mm[Hg] [facility] Diastolic blood pressure 2024-10-05 10:14:00 77 mm[Hg] [facility] Heart rate 2024-10-05 10:14:00 83 /min [facility] Body temperature 2024-10-05 10:14:[address] [facility] Respiratory rate 2024-10-05 10:14:00 17 /min [facility] Oxygen saturation in Arterial blood by Pulse oximetry 2024-10-05 10:14:00 96 /min [facility] Body height 2024-10-05 09:06:00 167.6 cm [facility] Body weight 2024-10-05 09:06:00 122.471 kg [facility] BMI 2024-10-05 09:06:00 43.58 kg/m2 [facility] Systolic blood pressure 2021-06-29 17:41:00 167 mm[Hg] [facility] Diastolic blood pressure 2021-06-29 17:41:00 105 mm[Hg] [facility] Heart rate 2021-06-29 17:41:00 92 /min [facility] Body height 2021-06-29 17:40:00 167.6 cm [facility] Body weight 2021-06-29 17:40:00 133.312 kg [facility] BMI 2021-06-29 17:40:00 47.44 kg/m2 [facility] Procedures Procedure Date / Time Performed Performing Clinicia n Source COMP. METABOLIC PANEL (82814) 2024-10-05 09:28:[address] [facility] CBC WITH DIFF 2024-10-05 09:28:[address] [facility] Encounters Start Date/Time End Date/Time Encounter Type Admission Type Attending Clinicians Care Facility Care Department Encounter ID Source 2024-10-28 09:10:00 2024-10-28 09:34:06 Consult Torres Davenport [facility] [id number] Nancy Jimenez [facility] 2024-10-28 08:53:26 2024-10-28 09:34:06 Outpatient Elective TORRES DAVENPORT [facility] [id number] EOUT 2024-10-05 04:04:00 2024-10-05 05:37:00 Emergency X SUMA GONZALEZ WAKILI [facility] ERT [id number] [facility] 2024-10-05 04:04:00 2024-10-05 05:37:00 Emergency Suma Gonzalez [facility] [id number] [id number] 4.2.7.2.686 [id number] [facility] 2023-10-03 00:00:00 2023-10-03 00:00:[address] [facility] [id number] [facility] 2023-07-12 00:00:00 2023-07-12 00:00:[address] [facility] [id number] [facility] 2022-05-13 16:49:55 2022-05-13 23:59:[address] [facility] [id number] [facility] 2022-05-13 16:49:55 2022-05-13 23:59:00 Hospital Encounter Radiology [facility] [id number] 350.1.13.10 4.2.7.2.686 [id number] [facility] 2021-06-29 12:00:00 2021-06-29 23:59:00 Outpatient R RAMESH BUTLER [facility] [id number] [facility] 2021-06-29 12:00:00 2021-06-29 23:59:00 Hospital Encounter Ramesh Butler [facility] [id number] 350.1.13.10 4.2.7.2.686 [id number] [facility] 2021-06-29 11:30:00 2021-06-29 12:00:00 Office Visit Ramesh Butler Shanna [facility] [id number] 350.1.13.10 4.2.7.2.686 [id number] [facility] 2021-06-29 11:30:00 2021-06-29 11:30:[address] [facility] [id number] [facility] 2021-06-29 00:00:00 2021-06-29 00:00:00 Orders Only Doctor Unassigned, [place] [facility] [id number] 350.1.13.10 4.2.7.2.686 [id number] [facility] 2021-06-03 00:00:00 2021-06-03 00:00:00 Patient Secure Msg Doctor Unassigned, [place] [facility] [id number] 350.1.13.10 4.2.7.2.686 [id number] [facility] 2021-05-25 00:00:00 2021-05-25 00:00:00 Orders Only Doctor Unassigned, [place] [facility] [id number] 350.1.13.10 4.2.7.2.686 [id number] [facility] 2020-10-26 13:40:00 2020-10-26 17:40:00 Emergency Symone Del Castillo [facility] [id number] 350.1.13.10 4.2.7.2.686 [id number] 2020-10-26 13:40:00 2020-10-26 17:40:00 Emergency Symone Del Castillo [facility] [id number] 350.1.13.10 4.2.7.2.686 [id number] [facility] 2020-10-26 13:40:00 2020-10-26 17:40:00 Emergency X SYMONE DEL CASTILLO [facility] ERT [id number] [facility] Notes Date/Time Note Provider [id number] 09:41[facility]34 [facility]26 09:41:34* Torres Davenport, SEE - 10/28/2024 9:10 AM CDT CHIEF COMPLAINT: GOUT, LEFT HISTORY OF PRESENT ILLNESS: Patient states concern for eating a high purine diet in over the past few days Patient states pain is severe with range of motion, starting approximately September 28, 2024 Patient denies history of open wounds Patient denies systemic signs of illness Patient states pain currently rated 6/10 on palpation PHYSICAL EXAM OF THE LOWER EXTREMITY: Vascular (+) 2/4 pitting edema, symmetrical bilateral lower extremity (-) ecchymosis (+) erythema Dorsal pedis pulse, bilateral - 2/4 Posterior tibial pulse, bilateral- 2/4 Capillary Refill time: within normal limits (-) varicosities (+) pedal hair growth Neurological (+) sensation with 5.07 Clayton Irving monofilament examination to the most distal lower extremity (+) normal response to hot, cold, sharp, blunted and vibratory sensations (-) Tinel's sign (-) clonus Dermatological (-) infection (-) open wounds (-) abscess (-) Ischemic tissue (-) other primary or secondary lesions (+) normal temperature when compared to contralateral limb (+) normal color, tugor, and elasticity Musculoskeletal (+) diffuse superficial pain on palpation, LEFT foot/ankle (-) crepitation within joint, thus ruling out possible septic joint 5/5 muscle strength to extrinsic pedal muscle groups (-) evidence of compartment syndrome (-) evidence of deep vein thrombosis Venous duplex (per Dr Loza notes) bilateral lower extremity 10/09/2024: (-) thrombosis ASSESSMENT: GOUT, LEFT foot/ankle TREATMENT PLAN: - Extensive office visit discussing possible pedal complications - Medication - PRESCRIBED medrol dose pack - Options - apply warm compress to area, avoid purine rich diet, educational handout provided to patient- - X-rays - ORDERED foot/ankle - Labs - ORDERED uric acid and hemoglobin A1c - weight-bearing - reduced - edema- advised compression stockings - Return 1 week Patient advised to report to my clinic or the emergency room immediately with any questions or concerns.Patient Instructions:Discussion: A detailed discussion was provided to the patient with specific reference to etiology, pathology, alternate treatment options, and prognosis. All risks and complications (including side effects) with each treatment/medication alternative were outlined in detail including but not limited to: Pain, swelling, numbness, loss of function, loss of limb, bleeding, hematoma, scarring, failure to relieve condition, surgery, additional/ revisional surgery, reflex sympathetic dystrophy, complex regional pain syndrome, reoccurrence of deformity, joint stiffness, flail toe, bone and/or soft tissue infection, blood clots, pulmonary embolism, possible , delayed or non-healing. X-rays, graphs and drawings were all used to assist with patient comprehension when appropriate. All patients questions were answered and stated they fully understood. No guarantee as to results or outcome of treatment was made. I have discussed with the patient or legally responsible person prior to obtaining consent: the risks, potential benefits and drawbacks, significant alternatives, potential for problems related to recuperation, likelihood of success, and possible results of non-treatment, and the patient or the legally responsible person has agreed to proceed Bry [facility] [id number] 09:41:34Upcoming Encounters Health Maintenance Due Date Last Done Comments CT Colonography 1975 Colonoscopy 1975 Colorectal Cancer Screening 1975 FIT-DNA 1975 FIT 1975 FOBT 1975 Lipid Panel 1975 Medicare Annual Wellness (AWV) 1975 Sigmoidoscopy 1973 DTaP/Tdap/Td Vaccines (1 - Tdap) 1992 Hepatitis B Vaccines (1 of 3 - 19+ 3-dose series) 1992 Pap Smear 1994 Cervical Cancer Screening 10/03/2003 HPV/Cotest 10/03/2003 Mammogram 2013 Pneumococcal Vaccine: 50+ Ye ars (1 of 1 - PCV) 10/03/2023 Zoster Vaccines (1 of 2) 10/03/2023 Influenza Vaccine (Season Ended) 2025 Respiratory Syncytial Virus (RSV) Adult Series (1 - 1-dose 75+ series) 2048 HIB Vaccines Aged Out No longer eligi ble based on patient's age to complete this topic HPV Vaccines Aged Out No longer eligi ble based on patient's age to complete this topic Hepatitis A Vaccines Aged Out No long er eligible based on patient's age to complete this topic IPV Vaccines Aged Out No longer eligi ble based on patient's age to complete this topic Meningococcal Vaccine Aged Out No costa pete eligible based on patient's age to complete this topic Pneumococcal Vaccine: Pediat rics (0 to 5 Years) and At-Risk Patients (6 to 64 Years) Aged Out No longer eligible b ased on patient's age to complete this topic Rotavirus Vaccines Aged Out No longer eligible based on patient's age to complete this topic [facility] CenterPkkludh0416-96-13 05:35:28 Pt given printed and verbal discharge [...] gait, in no apparent distress. Raven Valadez [id number] 04:04:51 CC: LLE pain for 1 week, tender, red, warm to the touch and tight. Patient seen PCP two weeks ago, but leg was not this swollen. 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 METABOLIC PANEL (02305) - Abnormal NA 137 135 - 145 [...] Procedures Cbc with Diff Comp. Metabolic Panel (97301) Blood Culture Screen Blood Culture Screen Orders [...] Specialty: INTERNAL MEDICINE Relationship: PCP - General [address] [place] [id number] Carlos Eduardo Gentile Jr., DPM Specialty: [employer] [facility] [address] [place] [address] [address] [facility] [id number] Electronically signed by: Suma Gonzalez MD 10/05/[address] [facility]
--- NOTE | 2024-11-10 14:14 | RAD REPORT ---
EXAMINATION: XR LEFT FOOT CLINICAL INDICATION: PAIN TECHNIQUE: Multiple projections of the left foot were obtained. COMPARISON: No prior exam. FINDINGS: Moderate soft tissue edema and swelling is seen along the dorsum of the foot. Small posteri or calcaneal spur. No acute fracture or dislocation.
--- NOTE | 2024-11-10 14:23 | RAD REPORT ---
EXAMINATION: US LEFT LOWER EXTREMITY VENOUS DOPPLER CLINICAL INDICATION: PAIN TECHNIQUE: Complete bilateral duplex sonography of the LEFT lower extremity veins was performed. The examination included compression for vein patency, color Doppler imaging and flow augmentation in response to distal compression of the distal external iliac, common femoral, femoral, popliteal, tibi al, and great and small saphenous veins. COMPARISON: No prior exam. FINDINGS: Duplex sonography testing of the veins of the LEFT lower extremity was performed. Color flow imaging shows all veins to be compressible with [id number] color filling. Pulsatile and phasic flow is present within all lower extremity deep and superficial veins examined. IMPRESSION: There is no deep vein or superficial vein thrombosis.
--- NOTE | 2024-11-10 14:34 | ER ---
Nurse's Notes [facility] Name: Cristy Caceres Age: 49 yrs Sex: Female : 1975 Arrival Date: 11/10/2024 Time: 12:26 Bed 13 Private MD: Diagnosis: Other sprain of left foot Presentation: 11/10 12:49 Chief complaint: Patient states: "my foot was already swollen but today I rolled my aa5 ankle stepping on a stone". Pt c/o left foot pain. Coronavirus screen: At this time, the client does not indicate any symptoms associated with coronavirus-19. Ebola Screen: Patient denies travel to an Ebola-affected area in the 21 days before illness onset. Initial Sepsis Screen: Does the patient meet any 2 criteria? No. Patient's initial sepsis screen is negative. Does the patient have a suspected source of infection? No. Patient's initial sepsis screen is negative. Risk Assessment: Do you want to hurt yourself or someone else? Patient reports no desire to harm self or others. Onset of symptoms was November 10, 2024. 12:49 Method Of Arrival: Wheelchair aa5 12:49 Acuity: TWIN 4 aa5 Historical: - Allergies: 12:50 No Known Allergies; aa5 - PMHx: 12:50 back sx; Chronic pain; Hypertension; laminectomy; RSD; swelling in legs; aa5 - Immunization history:: Adult Immunizations unknown. - Infectious Disease History:: Denies. - Social history:: Smoking status: Patient denies any tobacco usage or history of. Screenin:14 [facility] ED Fall Risk Assessment (Adult) History of falling in the last 3 months, kc6 including since admission Yes- single mechanical fall (1 pt) Confusion or Disorientation No (0 pts) Intoxicated or Sedated No (0 pts) Impaired Gait No (0 pts) Mobility Assist Device Used No (0 pt) Altered Elimination No (0 pt) Score/Fall Risk Level 0 - 2 = Low Risk Oriented to surroundings, Maintained a safe environment. Abuse screen: Denies threats or abuse. Denies injuries from another. Nutritional screening: No deficits noted. Tuberculosis screening: No symptoms or risk factors identified. Assessment: 14:13 General: Appears in no apparent distress. comfortable, obese, unkempt, well developed, kc6 Behavior is calm, cooperative, appropriate for age. Pain: Complains of pain in left foot. Neuro: Level of Consciousness is awake, alert, obeys commands, Oriented to person, place, time, situation, Appropriate for age. Cardiovascular: Capillary refill < 3 seconds. Respiratory: Airway is patent Trachea midline Respiratory effort is even, unlabored, Respiratory pattern is regular, symmetrical. GI: No signs and/or symptoms were reported involving the gastrointestinal system. : No signs and/or symptoms were reported regarding the genitourinary system. EENT: No signs and/or symptoms were reported regarding the EENT system. Derm: Skin is healthy with good turgor, Skin is pink, warm \\T\\ dry. Musculoskeletal: Capillary refill < 3 seconds, Range of motion: limited in left ankle Swelling present in left foot, right leg and left leg. 15:19 Reassessment: Patient appears in no apparent distress at this time. No changes from kc6 previously documented assessment. Patient and/or family updated on plan of care and expected duration. Pain level reassessed. Patient is alert, oriented x 3, equal unlabored respirations, skin warm/dry/pink. Vital Signs: 12:49 BP 160 / 82; Pulse 89; Resp 19 S; Temp 97.5(TE); Pulse Ox 96% on R/A; Weight 122.47 kg aa5 (R); Height 5 ft. 6 in. (R); 15:19 BP 158 / 80; Pulse 85; Resp 17 S; Pulse Ox 99% on R/A; kc6 12:49 Body Mass Index 43.58 (122.47 kg, 167.64 cm) aa5 ED Course: 12:28 Patient arrived in ED. mr 12:31 Laya Mcneill, JONES is PHCP. kb 12:31 Giovanni Harvey MD is Attending Physician. kb 12:49 Arm band placed on. aa5 12:50 Triage completed. aa5 13:50 Foot Left 3 View XRAY In Process Unspecified. EDMS 14:08 US Extremity Venous Unilateral Ltd In Process Unspecified. EDMS 14:11 Jessy Summers, AYESHA is Primary Nurse. kc6 14:14 Patient has correct armband on for positive identification. Bed in low position. Call kc6 light in reach. Side rails up X 1. Pulse ox on. NIBP on. Door closed. Noise minimized. Lights dimmed. Pillow given. Verbal reassurance given. 14:14 Patient maintains SpO2 saturation greater than 95% on room air. kc6 15:19 Crutch training done. Ferny wrap to left ankle. kc6 15:20 No provider procedures requiring assistance completed. Patient did not have IV access kc6 during this emergency room visit. Administered Medications: 13:00 Not Given (pt reports she took ibuprofen RECYCLABLE [employer]S SORTER ): mg PO once aa5 Medication: 15:20 VIS not applicable for this client. kc6 Outcome: 14:33 Discharge ordered by . kb 15:20 Discharged to home ambulatory, with crutches, kc6 15:20 Condition: good 15:20 Discharge instructions given to patient, Instructed on discharge instructions, follow up and referral plans. crutch walking, Demonstrated understanding of instructions, follow-up care, crutch walking, 15:20 Patient left the ED. kc6 Signatures: Dispatcher [employer] EDMS Laya Mcneill, HARRY-Jake NURSING OFFICER-Eliza Antony, Reg Reg Shruthi Judge, RN RN aa5 Jessy Summers, AYESHA RN kc6 Corrections: (The following items were deleted from the chart) 12:52 12:49 Chief complaint: Patient states: "my foot was already swollen but today I rolled aa5 my ankle stepping on a stone". Pt c/o left ankle pain. aa5 12:52 12:49 Pulse 89bpm; Resp 19bpm; Spontaneous; Pulse Ox 96% RA; Temp 97.5F Temporal; aa5 aa5 12:59 12:49 Pulse 89bpm; Resp 19bpm; Spontaneous; Pulse Ox 96% RA; Temp 97.5F Temporal; aa5 122.47 kg Reported; Height 5 ft. 6 in. Reported; BMI: 43.5; aa5
--- NOTE | 2024-11-10 14:34 | EDPHYS ---
Physician Documentation [facility] Name: Cristy Caceres Age: 49 yrs Sex: Female : 1975 Arrival Date: 11/10/2024 Time: 12:26 Bed 13 Private MD: ED Physician Giovanni Harvey HPI: 11/10 13:43 This 49 yrs old Female presents to ER via Wheelchair with complaints of Ankle Injury. kb 13:43 Pt is a 49 year old female who presents for pain to left foot. States she twisted it kb and has been unable to bear weight. Denies any other injury/trauma. Reports she has had swelling to the left foot and ankle for a while and has an appt scheduled with PCP for evaluation for that. . Historical: - Allergies: 12:50 No Known Allergies; aa5 - PMHx: 12:50 back sx; Chronic pain; Hypertension; laminectomy; RSD; swelling in legs; aa5 - Immunization history:: Adult Immunizations unknown. - Infectious Disease History:: Denies. - Social history:: Smoking status: Patient denies any tobacco usage or history of. ROS: 13:44 Constitutional: As per HPI kb Exam: 14:32 Constitutional: This is a well developed, well nourished patient who is awake, alert, kb and in no acute distress. Head/Face: Normocephalic, atraumatic. ENT: Moist Mucous membranes Cardiovascular: Regular rate Respiratory: Respirations even and unlabored. No increased work of breathing. Talking in full sentences Skin: Warm, dry with normal turgor. Normal color. Neuro: Awake and alert, GCS 15, oriented to person, place, time, and situation. 14:32 Musculoskeletal/extremity: Extremities: grossly normal except: noted in the left foot: pain, swelling, tenderness, ROM: intact in all extremities, Circulation is intact in all extremities. Sensation intact. Weight bearing: can bear weight with assistance only, Vital Signs: 12:49 BP 160 / 82; Pulse 89; Resp 19 S; Temp 97.5(TE); Pulse Ox 96% on R/A; Weight 122.47 kg aa5 (R); Height 5 ft. 6 in. (R); 15:19 BP 158 / 80; Pulse 85; Resp 17 S; Pulse Ox 99% on R/A; kc6 12:49 Body Mass Index 43.58 (122.47 kg, 167.64 cm) aa5 MDM: 12:31 Medical Screening Exam initiated kb 14:33 Differential diagnosis: fracture, sprain, dvt. Data reviewed: vital signs, nurses kb notes. Counseling: I had a detailed discussion with the patient and/or guardian regarding the historical points, exam findings, and any diagnostic results supporting the discharge/admit diagnosis, radiology results, the need for outpatient follow up, a family practitioner, a orthopedic surgeon, to return to the emergency department if symptoms worsen or persist or if there are any questions or concerns that arise at home. 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 Disposition Summary: 11/10/24 14:33 Discharge Ordered Notes: Location: Home kb Condition: Stable kb Diagnosis - Other sprain of left foot kb Followup: kb - With: Emergency Department - When: As needed - Reason: Worsening of condition Followup: kb - With: Private Physician - When: 2 - 3 days - Reason: Recheck today's complaints, Continuance of care, Re-evaluation by your physician Discharge Instructions: - Discharge Summary Sheet kb - Foot Sprain kb Forms: - Medication Reconciliation Form kb - Antibiotic Education kb - Prescription Opioid Use kb - Patient Portal Instructions kb - Leadership Thank You Letter kb Signatures: Dispatcher [employer] EDLaya Hand FNP-C FNP-Giovanni Stout MD MD rn Calderon, Audri, RN RN aa5 Corrections: (The following items were deleted from the chart) 12:53 12:53 Extremity Venous Uni Ltd+[email or web address] ordered. EDMS EDMS
[2024-11-10 15:35] VITALS: TEMP 97.5
[2024-11-10 15:37] VITALS: BP 158/80; O2SAT 99
== END 2024-11-10 15:20 | disposition home or self-care (01) ==
LOC: ER 12:26
DX: S93.692A Other sprain of left foot, initial encounter (principal)
CPT/HCPCS: 93971; 99283